=== PATIENT | male | born 1935 | race Caucasian/White ===

== ENCOUNTER 2020-08-29 08:52 | Emergency (ER) | payer MEDICARE, SELFPAY ==
[2020-08-29 09:18] VITALS: BP 158/72; PULSE 79; RESP 18; TEMP 36.6; O2SAT 99; BMI 24.5
--- NOTE | 2020-08-29 09:27 | DI.RAD.S_ITS ---
PROCEDURE: XR KNEE LT 3V INDICATIONS: fall TECHNIQUE: 3 views of the knee were acquired. COMPARISON: None. FINDINGS: Bones: Nondisplaced patellar fracture. No suspicious bony lesions. Soft tissues: Moderate joint effusion. No suspicious soft tissue calcifications. Anterior soft tissue swelling. IMPRESSION: Nondisplaced patellar fracture with associated knee joint effusion. Dictated by: Semaj Guerin M.D. on 08/29/2020 at 8:50 Approved by: Semaj Guerin M.D. on 08/29/2020 at 8:51
--- NOTE | 2020-08-29 10:05 | ED_ITS ---
HPI - Extremity Injury (Lower) General Chief Complaint: Extremity Injury, Lower Stated Complaint: fell and hurt knee Time Seen by Provider: 08/29/20 09:05 Source: patient Mode of arrival: Family Vehicle Limitations: no limitations History of Present Illness HPI Narrative: 85-year-old gentleman recently moved to [facility] has a history of cardiac disease, renal insufficiency and hyperlipidemia. While moving boxes yesterday he hit an edge of a box and fell forward landing on his left knee less elbow. He did not hit his head he did not lose consciousness. Was able to get up and went about the rest of his day that this morning notes that his knees increasingly painful and swollen. He is able to walk on it. He describes no preceding dizziness or chest pain. He has been otherwise healthy with no recent fevers, cough, chills, abdominal pain, dyspnea, orthopnea, change to bowel or bladder habits or any urinary symptoms. Related Data Previous Rx's Medication Instructions Recorded hydrocodone 5 mg-acetaminophen 325 1 tab PO Q6H PRN #10 tab 08/29/20 mg tablet Review of Systems Review of Systems Narrative: Remainder of complete review of systems is otherwise unremarkable except for that included in the HPI. Patient History Medical History Hyperlipidemia Renal insufficiency Social History Smoking Status: Never smoker Smoking Status: Never smoker alcohol intake frequency: 0-2 drinks per day Exam Narrative Exam Narrative: General: Alert appropriate in no acute distress Respiratory: Able to speak in full sentences, no obvious respiratory distress Skin: Scattered shallow bruises from thin skin and aspirin use, skin tear to the left elbow and minor scratch just above the elbow. Neurologic: Grossly intact no obvious asymmetries or abnormalities Psych: appropriate insight and affect, cooperative Extremities: Left knee without significant contusion or hematoma with tenderness directly over 50 the patella and full orthopedic exam limited by moderate effusion but no obvious ligamentous instability. Neurovascularly intact distally Initial Vital Signs Initial Vital Signs: Vital Signs Temperature 97.9 F 08/29/20 09:18 Pulse Rate 79 08/29/20 09:18 Respiratory Rate 18 08/29/20 09:18 Blood Pressure 158/72 H 08/29/20 09:18 Pulse Oximetry 99 08/29/20 09:18 Procedures Orthopedic Splinting/Casting Left patellar fracture: Time of procedure: 11:47 Lower Extremity Injury Location: knee Lower Extremity Immobilizer: knee immobilizer Other Orthopedic Equipment: crutches Post splinting neuro exam: intact Post splinting vascular exam: intact Placed by: Nursing Course Orders Ordered: ED Orders 08/29/20 09:27 XR knee LT 3V Stat Vital Signs Vital signs: Vital Signs - 8 hr 08/29/20 09:18 08/29/20 11:35 Temperature 97.9 F Pulse Rate 79 70 Respiratory Rate 18 17 Blood Pressure 158/72 H 144/69 H Pulse Oximetry 99 97 MDM - Extremity Injury (Lower) Imaging Data X-ray knee: Radiologist's Impression: FINDINGS: Bones: Nondisplaced patellar fracture. No suspicious bony lesions. Soft tissues: Moderate joint effusion. No suspicious soft tissue calcifications. Anterior soft tissue swelling. IMPRESSION: Nondisplaced patellar fracture with associated knee joint effusion. Dictated by: Semaj Geurin M.D. on 08/29/2020 at 8:50 MDM Narrative Medical decision making narrative: 85-year-old gentleman with a nondisplaced patellar fracture and mild skin tear over the elbow both on the left side. Skin tear is cleaned and Steri-Strips are placed. He is placed in a knee immobilizer and crutches are given he does have a walker available to him at home. He states the pain is manageable and declines any pain medication. Tries to avoid nonsteroidals because of his mild renal insufficiency. Last him to follow-up with orthopedic surgery if he feels that he is not improving and he is safe for home discharge Discharge Plan Departure Patient Disposition: Home Clinical Impression: Closed fracture of left patella Qualifiers: Encounter type: initial encounter Fracture morphology: unspecified fracture morphology Fracture alignment: nondisplaced Qualified Code(s): S82.002A - Unspecified fracture of left patella, initial encounter for closed fracture Skin tear of left elbow without complication Qualifiers: Encounter type: initial encounter Qualified Code(s): S51.012A - Laceration without foreign body of left elbow, initial encounter Instructions: DI for Patella Fracture Activity Restrictions/Additional Instructions: Thank you for coming in today Unfortunately, you do have a nondisplaced patellar (knee calf) fracture on the left side. There is a small bit of effusion (fluid) in the knee as well. This is going to be tender for a number of weeks and fractures typically take 6 weeks to completely heal. The next 24-48 hours are going to be the most painful. Elevation, ice, Tylenol and [place] if the pain is severe enough as well as the knee immobilizer will help with pain. You can walk on the leg without causing more injury but it will be painful. Please use the crutches given in the emergency room or the walker that you have available at home to help with stability so that you do not fall again the next few days I would recommend schedule an appointment with our orthopedic surgeon, Dr. Warner at [facility] [phone] sometime next week for evaluation to make sure that you truly are healing appropriately and there are no other recommendations that he has. I hope you heal quickly Prescriptions: New hydrocodone-acetaminophen 5-325 mg tablet 1 tab PO Q6H PRN (Reason: pain) Qty: 10 RF: 0 Referrals: Radha Warner MD [Physician] -
[2020-08-29 11:35] VITALS: BP 144/69; PULSE 70; RESP 17; O2SAT 97
== END 2020-08-29 11:37 | disposition home or self-care (01) ==
PROVIDERS: Emergency Provider Emergency Medicine
DX: S82.002A Unspecified fracture of left patella, initial encounter for closed fracture (principal); S51.012A Laceration without foreign body of left elbow, initial encounter; W19.XXXA Unspecified fall, initial encounter
CPT/HCPCS: 73562; 99283

== ENCOUNTER → 2020-12-18 11:32 | Outpatient (CLI) | payer MEDICARE, SELFPAY ==
--- NOTE | 2020-12-18 11:34 | DI.CT.S_ITS ---
PROCEDURE: CT ABDOMEN PELVIS WO CON INDICATIONS: Abdominal pain history of kidney stones TECHNIQUE: Axial sections were acquired from the lung bases to the pubic symphysis. Coronal and sagittal reformats were performed. For radiation dose reduction, the following was used: automated exposure control, adjustment of mA and/or kV according to patient size. COMPARISON: None. FINDINGS: Image quality: Excellent. Lung bases: Right basilar atelectasis. Heart: No significant findings. URINARY: Right Kidney: 5.9 mm nonobstructing calculus in the upper pole. No hydronephrosis. Right Ureter: No hydroureter. Left Kidney: Punctate (/than 3 mm) non-obstructing calculus in the lower pole. Left Ureter: No hydroureter. Bladder: 6.5 mm calculus in the right aspect of the urinary bladder. ABDOMEN: Liver: Unremarkable. Gallbladder: No gallbladder wall thickening or pericholecystic fluid. Biliary ducts: Unremarkable. Pancreas: Unremarkable. Spleen: Unremarkable. Adrenal Glands: Unremarkable. Stomach and Bowel: No evidence of intestinal obstruction. Extensive sigmoid diverticulosis. A moderate stool burden in the ascending/transverse colon. Normal appendix. Peritoneum: No abnormal intraperitoneal fluid. No free air. Ventral Wall: A fat containing periumbilical hernia is seen with defect measuring 1.4 cm in hernia sac measuring 4.9 cm in transverse dimension. Abdominal Nodes: No enlarged retroperitoneal or mesenteric lymph nodes. Vessels: Aorta and inferior vena cava are normal in size. PELVIS: Pelvic Organs: Enlargement of the prostate, measuring 5.8 cm in transverse dimension. Pelvic Nodes: Unremarkable. Miscellaneous: Small fat containing, left inguinal hernia with fascial defect measuring 1 cm. Bones: No acute abnormality. A left hip arthroplasty is noted. Moderate disc height loss at L5-S1 with vacuum phenomena. IMPRESSION: 1. Bilateral nephrolithiasis as detailed above. 2. 6.5 mm calculus in the right aspect of the urinary bladder. 3. Prostatomegaly. 4. Extensive sigmoid diverticulosis. 5. Fat containing left inguinal and ventral hernias as detailed above. Dictated by: Cipriano Stuart M.D. on 12/18/2020 at 13:21 Approved by: Cipriano Stuart M.D. on 12/18/2020 at 13:32
== END ==
PROVIDERS: PCP Internal Medicine; Referring Provider Urology; Visit Provider Urology
DX: R10.30 Lower abdominal pain, unspecified (principal); N20.0 Calculus of kidney; N21.0 Calculus in bladder; N40.0 Benign prostatic hyperplasia without lower urinary tract symptoms; K57.30 Diverticulosis of large intestine without perforation or abscess without bleeding; K40.90 Unilateral inguinal hernia, without obstruction or gangrene, not specified as recurrent; K43.9 Ventral hernia without obstruction or gangrene; Z87.442 Personal history of urinary calculi
CPT/HCPCS: 74176

== ENCOUNTER → 2020-12-22 11:56 | Outpatient (CLI) | payer MEDICARE, SELFPAY | PROVIDERS: PCP Internal Medicine; Referring Provider Urology; Visit Provider Urology | DX: N39.0 Urinary tract infection, site not specified (principal) | CPT/HCPCS: 87086 ==

== ENCOUNTER → 2020-12-22 12:34 | Outpatient (CLI) | payer MEDICARE, SELFPAY ==
--- NOTE | 2020-12-22 12:36 | DI.RAD.S_ITS ---
PROCEDURE: XR KUB INDICATIONS: Renal calculi TECHNIQUE: One view of the abdomen acquired. COMPARISON: Reference is made to the CT abdomen dated December 18, 2020. FINDINGS: Surgical changes and devices: None. Bowel: Bowel gas pattern is normal. Soft tissues: No suspicious abdominal calcifications. Visualized solid organ contours appear normal in size. Bones: No suspicious bony lesions. A partially imaged left hip arthroplasty is seen. At least moderate degenerative changes of the right hip with sclerosis of the femoral head. IMPRESSION: No significant abnormality. Dictated by: Cipriano Stuart M.D. on 12/22/2020 at 13:25 Approved by: Cipriano Stuart M.D. on 12/22/2020 at 13:31
== END ==
PROVIDERS: PCP Internal Medicine; Referring Provider Urology; Visit Provider Urology
DX: N20.0 Calculus of kidney (principal); N21.0 Calculus in bladder; N39.0 Urinary tract infection, site not specified; R10.30 Lower abdominal pain, unspecified; K42.9 Umbilical hernia without obstruction or gangrene; Z85.51 Personal history of malignant neoplasm of bladder; Z96.642 Presence of left artificial hip joint
CPT/HCPCS: 74018; 81002; 87086; 99215

== ENCOUNTER → 2020-12-29 08:42 | Outpatient (CLI) | payer MEDICARE, SELFPAY ==
--- NOTE | 2020-12-29 08:47 | DI.CT.S_ITS ---
PROCEDURE: CT PEL WO CON INDICATIONS: KIDNEY STONES TECHNIQUE: Images acquired in prone position. 5 mm thick sections acquired from above the iliac crests to the below the ischial tuberosities. 5 mm coronal and sagittal reformats were then performed. For radiation dose reduction, the following was used: automated exposure control, adjustment of mA and/or kV according to patient size. COMPARISON: None. FINDINGS: Image quality: Excellent. Peritoneum and bowel: Diverticulosis. No diverticulitis. No dilated loops of bowel. No free fluid or air. Genitourinary: Obstructing calculus in the distal right ureter at the pelvic brim measuring 0.4 cm, (2/20), new compared to CT 12/18/2020. Upstream right hydroureter is seen. Bladder is partially distended. There is a stone now located in the anterior bladder measuring 0.7 cm, (2), previously located in the right dependent bladder. This stone is free-floating. Suspect additional punctate bladder stone, (2/). No distal hydroureter. Nodes and vessels: No iliac, pelvic, or inguinal adenopathy by size criteria. Iliac vessels demonstrate normal size. Bones: No suspicious bony lesions. Left hip total arthroplasty, unchanged. Moderate right hip DJD. Miscellaneous: Suspect fat containing left inguinal hernia. IMPRESSION: 1. Obstructing calculus in the distal right ureter at the pelvic brim measuring 0.4 cm. Upstream right hydroureter. 2. Free floating stone in the bladder measuring 0.7 cm. Suspect additional punctate bladder stone. 3. Prostatomegaly. Dictated by: Matt White M.D. on 12/29/2020 at 9:36 Approved by: Matt White M.D. on 12/29/2020 at 9:46
== END ==
PROVIDERS: PCP Internal Medicine; Referring Provider Urology; Visit Provider Urology
DX: N20.0 Calculus of kidney (principal); N20.1 Calculus of ureter; N21.0 Calculus in bladder; N40.0 Benign prostatic hyperplasia without lower urinary tract symptoms; K57.90 Diverticulosis of intestine, part unspecified, without perforation or abscess without bleeding
CPT/HCPCS: 72192

== ENCOUNTER 2021-01-02 15:36 | Emergency (ER) | payer MEDICARE, SELFPAY ==
[2021-01-02 15:56] VITALS: BP 138/65; PULSE 77; RESP 18; TEMP 36.7; O2SAT 96; BMI 24.5
--- NOTE | 2021-01-02 17:05 | ED_ITS ---
HPI - Male Genitourinary <Wolf Cho PA-C - Last Filed: 01/02/21 19:33> General Chief complaint: Urogenital-Male Stated complaint: LEAKING CATHETER Time Seen by Provider: 01/02/21 16:23 Source: patient Mode of arrival: Ambulatory Limitations: no limitations History of Present Illness HPI Narrative: Patient is an 85-year-old male presenting to the emergency department today for evaluation of the leaking catheter. Patient states that he underwent a procedure on 12/31/2020 receiving a stent for kidney stones. The patient states that he began to experience leaking around the catheter late this morning. Patient denies seeing any blood or clots leaking from around the catheter. Additionally, he states that he is not experiencing any abdominal pain her pain around his bladder. Patient denies fever, chills, chest pain, shortness of breath, nausea, vomiting, abdominal pain, diarrhea. No other concerns voiced at this time. Related Data Home Medications Medication Instructions Recorded Confirmed aspirin 81 mg tablet,delayed 81 mg PO DAILY 11/05/20 12/22/20 release atorvastatin 40 mg tablet 40 mg PO DAILY 11/05/20 12/22/20 cholecalciferol (vitamin D3) 25 25 mcg PO DAILY 11/05/20 12/22/20 mcg (1,000 unit) capsule Allergies Allergy/AdvReac Type Severity Reaction Status Date / Time Penicillins Allergy swelling Verified 01/02/21 15:56 Review of Systems <Wolf Cho PA-C - Last Filed: 01/02/21 19:33> Constitutional Constitutional: Denies chills, Denies fever(s), Denies lethargy and Denies weakness Cardiovascular Cardiovascular: Denies chest pain, Denies irregular heart rhythm, Denies lightheadedness, Denies palpitations, Denies dyspnea, Denies dyspnea on exertion and Denies orthopnea Respiratory Respiratory: Denies cough, Denies dyspnea, Denies dyspnea on exertion and Denies wheezing Gastrointestinal Gastrointestinal: Denies abdominal pain, Denies change in bowel habits, Denies diarrhea, Denies nausea and Denies vomiting Genitourinary Genitourinary: Denies hematuria and Reports other (Leaking around catheter) Neurologic Neurologic: Denies weakness Endocrine Endocrine: Denies palpitations Allergic/Immunologic Allergic/Immunologic: Denies wheezing Patient History <Wolf Cho PA-C - Last Filed: 01/02/21 19:33> Medical History Aortic stenosis Bladder calculus Calculus of kidney Carotid artery plaque Cataract Dupuytren contracture History of kidney stones Hx of bladder cancer Hyperlipidemia Hyperparathyroidism Low vitamin D level Lower abdominal pain Pacemaker Recurrent skin cancer Renal insufficiency 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 Well-developed patient, in no acutedistress. HEAD: Atraumatic. Normocephalic. EYES: Pupils equal round and reactive. Extraocular motions intact. No scleral icterus. No injection or drainage. ENT: Nose without bleeding, purulent drainage. Throat without erythema, tonsillar hypertrophy or exudate. Airway patent. NECK: Trachea midline. Non tender CARDIOVASCULAR: Regular rate and rhythm without murmurs, gallops, or rubs. RESPIRATORY: Clear to auscultation. Breath sounds equal bilaterally. No wheezes, rales, or rhonchi. GASTROINTESTINAL: Abdomen soft, non-tender, nondistended. GENITOURINARY: catheter in place. No active drainage from catheter appreciated. No appreciable debris, clots or blood in urine. EXTREMITIES: No edema or joint tenderness. BACK: Nontender without deformity or crepitance. No flank tenderness. NEURO: AOx3. SKIN: No rash or erythema of visible areas Initial Vital Signs Initial Vital Signs: Vital Signs Temperature 98.1 F 01/02/21 15:56 Pulse Rate 77 01/02/21 15:56 Respiratory Rate 18 11/06/21 15:56 Blood Pressure 138/65 01/02/21 15:56 Pulse Oximetry 96 01/02/21 15:56 <DO Konrad Joe Last Filed: 01/03/21 10:18> Initial Vital Signs Initial Vital Signs: Vital Signs Temperature 98.1 F 01/02/21 15:56 Pulse Rate 77 01/02/21 15:56 Respiratory Rate 18 01/02/21 15:56 Blood Pressure 138/65 01/02/21 15:56 Pulse Oximetry 96 01/02/21 15:56 Course <Wolf Cho PA-C - Last Filed: 01/02/21 19:33> Course Course Narrative: Patient is an 85-year-old male presenting to the emergency department today for evaluation of the leaking catheter. Orders Ordered: Discontinued Medications Oxybutynin (Oxybutynin 5 Mg Tablet) 5 mg PO DAILY KOJO Oxybutynin (Oxybutynin 5 Mg Tablet) 5 mg PO NOW ONE Stop: 01/02/21 18:16 Last Admin: 01/02/21 18:22 Dose: 5 mg Documented by: NENA Vital Signs Vital signs: Vital Signs - 8 hr 01/02/21 15:56 01/02/21 17:33 Temperature 98.1 F Pulse Rate 77 72 Respiratory Rate 18 18 Blood Pressure 138/65 133/63 Pulse Oximetry 96 97 <Jaimee Moore DO - Last Filed: 01/03/21 10:18> Orders Ordered: Discontinued Medications Oxybutynin (Oxybutynin 5 Mg Tablet) 5 mg PO DAILY KOJO Oxybutynin (Oxybutynin 5 Mg Tablet) 5 mg PO NOW ONE Stop: 01/02/21 18:16 Last Admin: 01/02/21 18:22 Dose: 5 mg Documented by: RLHOLLIEI Vital Signs Vital signs: Vital Signs - 8 hr 01/02/21 15:56 01/02/21 17:33 Temperature 98.1 F Pulse Rate 77 72 Respiratory Rate 18 18 Blood Pressure 138/65 133/63 Pulse Oximetry 96 97 MDM - Male Genitourinary <TOPHER Espinoza Last Filed: 01/02/21 19:33> MDM Narrative Medical decision making narrative: Patient is an 85-year-old male presenting to the emergency department today for evaluation of the leaking catheter. To consider leaking catheter versus urinary tract infection. 100 mL of normal saline flushed into the catheter with 100 mL fluid returned. Patient was bladder scanned with no significant urinary retention appreciated. No further appreciable we could from the catheter noted. Further leaking occurred, and the catheter was replaced with a larger catheter. Additionally, p.o. oxybutynin was administered in the emergency department. No further leakage from the catheter appreciated. Discussed with the patient strict return precautions prior to discharge. Discharge Plan Departure Patient Disposition: Home Clinical Impression: Leakage from urinary catheter Qualifiers: Encounter type: initial encounter Qualified Code(s): T83.038A - Leakage of other urinary catheter, initial encounter Instructions: How to Care for Your Catheter -- Male Activity Restrictions/Additional Instructions: *You have been diagnosed with leakage from urinary catheter *What to do: *Please continue to take your regular medications as directed. [ ] New medication prescriptions sent to your pharmacy: [ ] [ ] New medication written as a paper prescription [X] No new medications given *Please follow up with your primary care provider in 2-3 days, call for an appointment. Let them know you were seen in the Emergency Department and that we ask that you be seen in follow up. We will electronically transmit a record of today's note if your PCP is in our system *Please continue taking your oxybutynin as directed. *If you do not have a primary care provider please contact the [facility] Resource line at [phone]. They will ask some questions about your medical history and help get you set up with a doctor in the community. *Return to Emergency Department if you should have any new, worsening or concerning symptoms, such as fever greater than 101 F, shaking chills, pain, p ersistent vomiting, leakage from catheter, or other bothersome symptoms. Prescriptions: No Action aspirin 81 mg tablet,delayed release (DR/EC) 81 mg PO DAILY RF: 0 atorvastatin 40 mg tablet 40 mg PO DAILY RF: 0 cholecalciferol (vitamin D3) 25 mcg (1,000 unit) capsule 25 mcg PO DAILY RF: 0 Referrals: Renny Cerda MD [Primary Care Provider] - <Jaimee Moore DO - Last Filed: 01/03/21 10:18> Cosign ED Attending Cosignature Attestation: I was immediately available in the department for consultation. Documentation has been reviewed. I agree with assessment and plan.
--- NOTE | 2021-01-02 17:06 | PC.NURSE ---
Flushed catheter with 100ml of NS, got 100ml urine return. Changed leg bag and gave patient new night time back. Urine was flowing into new bag after flushing.
[2021-01-02 17:33] VITALS: BP 133/63; PULSE 72; RESP 18; O2SAT 97
[2021-01-02] MEDS: OXYBUTYNIN 5 MG TABLET PO (18:22)
== END 2021-01-02 19:14 | disposition home or self-care (01) ==
PROVIDERS: Emergency Provider Physician Assistant; PCP Internal Medicine
DX: T83.038A Leakage of other urinary catheter, initial encounter (principal)
CPT/HCPCS: 99283

== ENCOUNTER → 2021-11-23 12:13 | Outpatient (CLI) | payer MEDICARE, SELFPAY ==
--- NOTE | 2021-11-23 | DI.CT.S_ITS ---
PROCEDURE: CT KIDNEY URETER BLADDER (KUB) INDICATIONS: RIGHT FLANK PAIN/HISTORY OF KIDNEY STONES TECHNIQUE: Axial sections were acquired from the lung bases to the pubic symphysis. Coronal and sagittal reformats were performed. For radiation dose reduction, the following was used: automated exposure control, adjustment of mA and/or kV according to patient size. COMPARISON: None. FINDINGS: Image quality: Excellent. Lung bases: Right basilar atelectasis. The lung bases are otherwise clear. Heart: Heart size is normal. URINARY: Right Kidney: No stones or hydronephrosis. Right Ureter: No hydroureter. Left Kidney: No obstructing stones or hydronephrosis. The left kidney has a nonobstructing stone in the inferior pole. Left Ureter: No hydroureter. Bladder: 2 stones measuring 4 mm lie within the posterior bladder dependently. ABDOMEN: Liver: Unremarkable. Gallbladder: Unremarkable. Biliary ducts: Unremarkable. Pancreas: Unremarkable. Spleen: Unremarkable. Adrenal Glands: Unremarkable. Stomach and Bowel: Stomach, small bowel loops, and colon are unremarkable. There is severe diverticulosis of the left colon with no evidence of diverticulitis. Peritoneum: No abnormal intraperitoneal fluid. No free air. Ventral Wall: Fat containing ventral hernia. Abdominal Nodes: No enlarged retroperitoneal or mesenteric lymph nodes. Vessels: The aorta has atherosclerosis with no aneurysmal dilatation. The IVC is patent. PELVIS: Pelvic Organs: Unremarkable. Pelvic Nodes: Unremarkable. Miscellaneous: There is a fat containing left inguinal hernia. Bones: Degenerative disc disease at L5-S1. Status post total left hip replacement. IMPRESSION: 1. No obstructing nephroureteral calculi. 2. Punctate nonobstructing stone in the left inferior pole. 3. No acute abdominal or pelvic abnormality. 4. Fat containing left inguinal hernia and fat containing ventral hernia. 5. Diverticulosis of the sigmoid colon with no evidence of acute diverticulitis. . Dictated by: Arsen Peterson M.D. on 11/23/2021 at 16:33 Approved by: Arsen Peterson M.D. on 11/23/2021 at 16:38
== END ==
PROVIDERS: PCP Internal Medicine; Referring Provider Physician Assistant Surgical; Visit Provider Physician Assistant Surgical
DX: N20.0 Calculus of kidney (principal); K57.30 Diverticulosis of large intestine without perforation or abscess without bleeding; R10.9 Unspecified abdominal pain; K40.90 Unilateral inguinal hernia, without obstruction or gangrene, not specified as recurrent; K43.9 Ventral hernia without obstruction or gangrene; Z87.442 Personal history of urinary calculi
CPT/HCPCS: 74176

== ENCOUNTER → 2021-12-14 08:53 | Outpatient (CLI) | payer MEDICARE, SELFPAY ==
--- NOTE | 2021-12-14 | DI.US.S_ITS ---
PROCEDURE: US RENAL COMPLETE INDICATIONS: Calculus of kidney TECHNIQUE: Real-time scanning was performed of the kidneys and bladder, with image documentation. COMPARISON: [facility], CT, CT KIDNEY URETER BLADDER (KUB), 11/23/2021, 12:22. FINDINGS: Kidneys: Kidneys are normal in size. Right kidney measures 10.9 cm long; left kidney measures 10.3 cm long. Right renal cortical thickness is 1.2 cm; left renal cortical thickness is 1 4 cm. Renal cortical echotexture is normal. Shadowing calculus noted in the lower pole measuring 5 mm No suspicious solid mass lesions. Bladder: Pre-void bladder volume is 164 mL. Post-void residual is 97 mL. Pre-void images demonstrate no intraluminal masses or stones. On pre-void images, neither ureteral jets are noted with color Doppler interrogation. (Of note, ureteral jets may not be detectable in up to 25% of cases due to insufficient differences in specific gravity between ureteral and bladder urine). Bladder wall is thickened and irregular, there is a possible calculus in the lumen the bladder. Hypertrophic prostate measures 6.0 x 5.8 x 5.4 Miscellaneous: No free pelvic fluid. IMPRESSION: 1. Bladder outlet obstruction. The bladder wall is thickened, positive postvoid residual, and hypertrophic prostate elevates the bladder floor. Possible calculus in the bladder could be further evaluated with renal protocol CT. 2. Nonobstructive left renal calculus, 5 mm. No hydronephrosis bilaterally. Approved by: Wally Camacho M.D. on 12/14/2021 at 11:28
== END ==
PROVIDERS: PCP Internal Medicine; Referring Provider Physician Assistant Surgical; Visit Provider Physician Assistant Surgical
DX: N20.0 Calculus of kidney (principal); N32.0 Bladder-neck obstruction
CPT/HCPCS: 76770

== ENCOUNTER → 2022-01-07 09:39 | Outpatient (CLI) | payer MEDICARE, SELFPAY ==
[2022-01-07 10:43] LABS: COVID19 -Nasal RAPID Negative (Negative)
== END ==
PROVIDERS: PCP Internal Medicine; Visit Provider Surgery
DX: Z20.822 Contact with and (suspected) exposure to COVID-19 (principal); Z01.812 Encounter for preprocedural laboratory examination
CPT/HCPCS: 87635; C9803

== ENCOUNTER 2022-01-10 09:30 | Day surgery (SDC) | payer MEDICARE, SELFPAY ==
--- NOTE | 2022-01-10 | PATH_ITS ---
[facility] Accession Number: [id number] . 01 Material submitted: . PART A: colon - TRANSVERSE COLON POLYP - LARGE SMALL PART B: colon - LARGE TRANSVERSE COLON POLYP . 01 Diagnosis: A. Transverse Colon Polyp, Large Small, Polypectomy: Tubular adenoma. . B. Large Transverse Colon Polyp, Polypectomy: Tubular adenoma. MRV 01/13/2022 1516 Local . 01 Electronically signed: . Tracey Taylro MD, Pathologist NPI- [id number] . 01 Gross description: . Part A: TRANSVERSE COLON POLYP - LARGE SMALL: Received in formalin are 2 fragment(s) of pteer, soft tissue measuring 0.4 x 0.4 x 0.2 cm to 0.4 x 0.1 x 0.1 cm submitted entirely in 1 cassette(s) Part B: LARGE TRANSVERSE COLON POLYP: Received in formalin are multiple fragment(s) of peter, soft tissue measuring 2.2 x 1.0 x 0.1 cm in aggregate submitted entirely in 1 cassette(s) /CPE 01/12/2022 0708 Local . 01 Pathologist provided ICD-10: D12.6 . 01 CPT . 992707, [id number] Specimen Comment: A courtesy copy of this report has been sent to [phone] Performed at: 01 [facility] [address] [place] [address] [address], [place], [place] [id number] MD Ji Billings MD Phone: [phone]
[2022-01-10 09:54] VITALS: BMI 24.5
[2022-01-10 10:01] VITALS: BP 139/69; PULSE 78; RESP 16; TEMP 36.2; O2SAT 100
[2022-01-10] MEDS: LACTATED RINGERS 1,000 ML 84 ML IV (10:09)
--- NOTE | 2022-01-10 10:21 | PM.HP.1 ---
History of Present Illness History of Present Illness Date Patient Seen: 01/10/22 Time Patient Seen: 10:21 Chief complaint: DX COLONOSCOPY Narrative: I reviewed my recent office note. No significant changes. 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 chronic kidney disease Surgical History H/O circumcision H/O hernia repair History of hip replacement Family & Social History Social History: household members spouse lives independently Yes Tobacco & Substance use: Smoking Status Never smoker alcohol intake current alcohol intake frequency 0-2 drinks per day Substance Use Type does not use Meds Home Medications and Allergies Home Medications Medication Instructions Recorded Confirmed Type atorvastatin 40 mg tablet 40 mg PO DAILY 11/05/20 01/10/22 History cholecalciferol (vitamin D3) 25 25 mcg PO DAILY 11/05/20 01/10/22 History mcg (1,000 unit) capsule acetaminophen 650 mg tablet 650 mg PO Q6H PRN Pain (Scale 01/10/22 01/10/22 History Score 4-6) Allergies Allergy/AdvReac Type Severity Reaction Status Date / Time Penicillins Allergy swelling Verified 01/10/22 09:52 Review of Systems Review of Systems ROS: Yes All systems reviewed with the patient and are negative except as otherwise documented Exam Vital Signs (past 8 hours): - 01/10/22 10:01 Temperature 97.2 F L Pulse Rate 78 Respiratory Rate 16 Blood Pressure 139/69 Pulse Oximetry 100 Oxygen Delivery Method Room Air Oxygen Delivery Method Room Air Const General: cooperative HENMT Head: normal to inspection Eyes General: appearance normal, both eyes and all related structures Neck Neck: normal visual inspection Chest Chest: normal inspection of the chest Resp Effort & Inspection: normal respiratory effort Cardio Rate: regular rate GI Inspection: normal to inspection Skin General: no rashes or lesions noted Neuro General: patient alert and patient awake Extrem General: normal to inspection and no pedal edema Psych Appearance: grossly normal Assessment & Plan Assessment & Plan narrative: 86-year-old male with a personal history of colon polyps. Colonoscopy is pursued today. Time Spent With Patient Critical Care time: I spent a total of [] minutes of critical care time on this patient's care today; this time is exclusive of procedural time.
--- NOTE | 2022-01-10 10:22 | PM.PREOP ---
Pre-operative Note COVID-19 COVID-19 status: Negative Result date/Date tested (Pos, Neg/Pending): 01/07/22 Criteria for continued procedure: Possibility delay results in more complex future surgery or treatment Interval Note History & Physical reviewed/Exam performed by Physician: Yes Changes to H&P: No ASA Class (for procedural sedation): III
--- NOTE | 2022-01-10 12:05 | PM.OP.COLON ---
Operative Date/Time/Diagnoses Date of procedure: 01/10/22 Time of procedure: 12:05 Pre-op diagnosis: Colon polyps Post-op diagnosis: same Procedure & Clinicians Study performed: Colonoscopy with hot snare polypectomy cold forceps polypectomy Sharee ink injection Indications: Colon polyps Surgeon: Lebron Larson Procedure Notes SCOAP/Timeout: Done Procedure in detail: After the risks and benefits were explained, written and verbal informed consent was obtained. The patient was brought into the procedure room and placed into the left lateral decubitus position. Please see nurse corridor redevelopment manager notes for sedation details. Digital rectal examination was accomplished. The scope was introduced into the patient and advanced under direct visualization to the cecum as identified by the appendiceal orifice and ileocecal valve. The scope was slowly withdrawn to carefully examine the mucosa for any defects or lesions. Comprehensive imaging was accomplished throughout the rectum including the dentate line. The colon was decompressed, the scope was then removed from the patient who tolerated the procedure well. Twenty-two modifier is requested secondary to a very difficult polypectomy Adult colonoscope Bowel prep adequate Scope withdrawal time: 22 minutes Sedation minutes: 55 Complications: none Impression: There was extensive diverticulosis in the sigmoid colon. In the transverse colon there were 2 small polyps removed. One was diminutive and cold forceps were deployed. The other was slightly larger perhaps 7 mm and hot snare was utilized. There was an additional sessile large polyp perhaps 2 cm in greatest dimension. This only became apparent after initial snare attempt removed only a part of this polyp as there was a considerable hidden component on the backside of the fold stretching down into the trough between the next fold. As a consequence we spent considerable time at this location and were required to remove via piecemeal format. There was a small amount of residual adenomatous appearing mucosa that could not be removed with the snare as we did not have a stiff snare to press down sufficiently on this residual area which I ablated using the tip of the snare. A small tattoo was placed distal to the location which was in the proximal transverse colon within a couple of folds or so of the hepatic flexure. The location was difficult to maintain position on. Procedure time was as a consequence prolonged. Endoscopic diagnosis 1. Colon polyps 2. Diverticulosis 3. Prolonged procedure Post-procedure Plan for aftercare: 1. Await histopathology 2. Repeat colonoscopy 6 months. Disposition: PACU
[2022-01-10 12:07] VITALS: BP 115/53; PULSE 62; RESP 15; TEMP 36.6; O2SAT 98
[2022-01-10 12:13] VITALS: BP 128/55; PULSE 64; RESP 15; O2SAT 97
[2022-01-10 12:19] VITALS: BP 128/62; PULSE 67; RESP 14; TEMP 36.3; O2SAT 98
[2022-01-10 12:22] VITALS: BP 132/99; PULSE 65; RESP 12; TEMP 36.6; O2SAT 98
== END 2022-01-10 12:40 | disposition home or self-care (01) ==
PROVIDERS: PCP Internal Medicine; Referring Provider Internal Medicine Gastroenterology; Visit Provider Internal Medicine Gastroenterology
PROC: 0DJD8ZZ Inspection of Lower Intestinal Tract, Via Natural or Artificial Opening Endoscopic (ICD-10-PCS; CPT 45378; principal; 2022-01-10 10:30)
DX: Z12.11 Encounter for screening for malignant neoplasm of colon (principal); Z86.010 Personal history of colon polyps; K57.30 Diverticulosis of large intestine without perforation or abscess without bleeding; D12.3 Benign neoplasm of transverse colon
CPT/HCPCS: 45385; 45380; 45381; C9803; J2704

== ENCOUNTER → 2022-02-01 09:12 | Outpatient (CLI) | payer MEDICARE, SELFPAY ==
[2022-02-01 12:46] LABS: COVID19 -Nasal RAPID Negative (Negative)
== END ==
PROVIDERS: PCP Internal Medicine; Visit Provider Surgery
DX: Z20.822 Contact with and (suspected) exposure to COVID-19 (principal); Z01.812 Encounter for preprocedural laboratory examination
CPT/HCPCS: 87635; C9803

== ENCOUNTER 2022-02-02 07:50 | Day surgery (SDC) | payer MEDICARE, SELFPAY ==
[2022-02-01 10:43] VITALS: BMI 25.0
[2022-02-02] VITALS (9 sets, daily range): BP systolic 148–158; BP diastolic 65–97; PULSE 60–70; RESP 15–17; TEMP 35.9–36.3; O2SAT 97–99; BMI 24.7
--- NOTE | 2022-02-02 08:17 | PM.PREOP ---
Pre-operative Note Interval Note History & Physical reviewed/Exam performed by Physician: Yes Changes to H&P: No
[2022-02-02] MEDS: LACTATED RINGERS 1,000 ML 100 ML IV (08:26)
--- NOTE | 2022-02-02 08:30 | SUR.OPER ---
Supine on padded OR bed, head on pillow, arms padded and tucked at sides, legs uncrossed, safety belt at thigh, tape over blanket over lower legs .
[2022-02-02] MEDS: CLINDAMYCIN 900 MG/50 ML PIGGYBACK 50 MG IV (08:50)
[2022-02-02] MEDS: BUPIVACAINE 0.25% (PF) VIAL 30 ML INJ (09:11)
--- NOTE | 2022-02-02 11:01 | P.OP_ITS ---
Operative Date/Time/Diagnoses Date of procedure: 02/02/22 Time of procedure: 11:01 Pre-op diagnosis: Recurrent Right inguinal hernia Umbilical hernia Post-op diagnosis: same Procedure & Clinicians Procedure: Laparoscopic transabdominal preperitoneal repair of recurrent right inguinal hernia. Open umbilical hernia repair Same procedure as scheduled: Yes Indications: 86-year-old man previous anterior right inguinal hernia repair with a recurrence and a umbilical hernia. Surgeon: Nilay Hernandez Click Yes if Unassisted: Yes Anesthesia Type: General Operative Notes Findings: Right inguinal hernia-direct floor defect no indirect hernia Umbilical hernia-2 cm fascial defect No significant hemorrhage however the patient had a propensity to bleed that was more than average Specimen(s): none sent Estimated Blood Loss (mL): 100 Procedure in detail: The patient was brought to the operating room and placed supine on the table. Bilateral sequential compression devices were applied. General anesthesia was induced and they were intubated with an endotracheal tube. A nieves cath was placed in sterile fashion. They received 900g clindaymycin prior to skin incision. They were prepped and draped in sterile fashion. A time out was performed to ensure the correct patient, procedure and necessary equipment within the operating room. The skin was infiltrated with 0.25% bupivicaine. An infra umbilical incision was made. The fascia was sharply incised at the umbilical hernia defect and the abdomen entered traumatically. A 10mm balloon port was placed and pneumoperitoneum was established at 15mm Hg. Inspection of the abdomen demonstrated no evidence of injury upon entry. Two 5 mm ports were then placed under direct visualization in the right and left lower quadrant lateral to the rectus muscle. A right direct hernia was observed. There was no evidence of a left sided defect. On the right side the peritoneum 4 cm superior to the deep inguinal ring between the medial umbilical ligament and the anterior superior iliac spine was incised. The medial preperitoneal dissection was carried out into the space of Retzius bluntly, the bladder was swept inferiorly, the pubis and Abisai's ligament were identified. Next attention was turned towards the lateral aspect of the peritoneal flap. The preperitoneal fat with the testicular vessels was carefully dissected off the inferior peritoneal flap. There was approximately 75 ml of hemorrhage from a small branch off of the inferior epigastric arter which was controlled with hemoclips. The cord content was carefully examined and there was no evidence of cord lipoma or indirect hernia. The attachements to the direct hernia sac were divided and the direct defect was reduced. A large Bard 3D Max mesh was then placed into the abdomen and positioned such that the myopectineal orifice was completely covered with good overlap on all sides. The peritoneal flap was then repositioned back to its original position and a running V lock suture was used to close the peritoneum such that no bowel could herniate into the preperitoneal space. A portion of the peritoneum closure came undone and a few disolvable tacks were used to secure it in appropriate position. The area was examined for hemostasis. The 5mm trocars were removed under direct visualization and pneumoperitoneum was deflated through the umbilical trocar, Using blunt dissection I carefully carefully freed the umbilical hernia sac from beneath the fascia defect in order to accomodate the mesh. The fascia defect was 2 cm in maximal diameter. A Bard Ventralex ST hernia patch 4 cm was inserted beneath the fascia defect and above the peritoneum in a sublay positio n. The mesh was anchored in multiple locations using Ethibond suture to the fascia and the fascial defect was closed over the mesh. The umbilical skin was tacked to the subcutaneous tissues and then the remainder of the subcutaneous tissues were reapproximated using 3 0 Vicry,l skin closed with 4 0 Monocryl followed by the application of Dermabond. Sponge instrument count at the end of the operation was correct. Patient tolerated procedure well was extubated and transferred to postoperative care unit in stable condition. Complications: none Post-operative Condition: stable Disposition: same day surgery
[2022-02-02] MEDS: ONDANSETRON 4 MG/2 ML INJ IV (11:19)
[2022-02-02] MEDS: OXYCODONE/ACETAMINOPHEN 5/325 TABLET 1 TAB PO ×2 (11:19→12:16)
== END 2022-02-02 12:30 | disposition home or self-care (01) ==
PROVIDERS: PCP Internal Medicine; Referring Provider Surgery; Visit Provider Surgery
PROC: 0YQ54ZZ Repair Right Inguinal Region, Percutaneous Endoscopic Approach (ICD-10-PCS; CPT 49651; principal; 2022-02-02 08:45)
PROC: (CPT 49651; 2022-02-02 08:45)
DX: K40.91 Unilateral inguinal hernia, without obstruction or gangrene, recurrent (principal); K42.9 Umbilical hernia without obstruction or gangrene; Z95.0 Presence of cardiac pacemaker
CPT/HCPCS: 49651; 82962; J1100; J2405; J2704; J3010

== ENCOUNTER → 2022-02-23 14:57 | Outpatient (CLI) | payer MEDICARE, SELFPAY ==
--- NOTE | 2022-02-23 15:01 | DI.ECHO.S_ITS ---
[facility]---------+ [facility] +---------+ : : [address] : : : : [id number] : : : : Phone: [phone]+ Echocardiogram Report + + :Name: LANIE CRISTOBAL Study Date: 02/23/2022 Height: 70 in : :[facility] ReadingLocation: Weight: 175 lb : : Gender: Male BSA: 2.0 m2 : :: 1935 Age: 86 yrs BP: 150/87 mmHg: :Reason For Study: MURMUR : :Ordering Physician: TAMIA, : :CHUCK Performed By: Ailyn Leach : :Referring: CHUCK CANTRELL : + + Interpretation Summary The left ventricle is normal in size and wall thickness. The ejection fraction is estimated to be 60-65%. The right ventricle is normal in size and function. There is a pacemaker lead in the right ventricle. There is moderate mitral regurgitation. The aortic valve is moderately calcified. The peak aortic velocity is 2.5 m/sec. The aortic valve mean gradient is 13 mmHg. There is mild to moderately reduced leaflet mobility. The calculated aortic valve area is 2.0 cm2. sev ratio: 0.64 Overall mild to moderate aortic stenosis based on morphology and Doppler evaluation. No critical aortic stenosis. There is mild aortic regurgitation. There is moderate tricuspid regurgitation. The right ventricular systolic pressure is estimated to be at least 36 mmHg based on an estimated right atrial pressure of 3 mm Hg. The ascending aorta is mildly enlarged. Mild atherosclerotic plaque(s) in the aortic arch. There is mild luminal irregularity and echogenicity in the abdominal aorta, suggestive of aortic atherosclerotic disease. Procedure: A two-dimensional transthoracic echocardiogram with color flow and Doppler was performed. The study quality was technically adequate. There is no prior echocardiogram noted for this patient. The patient was in sinus rhythm with heart rates between 60-75 bpm during the exam. Left Ventricle: The left ventricle is normal in size and wall thickness. There is no thrombus. The ejection fraction is estimated to be 60-65%. There are no focal wall motion abnormalities. Diastolic parameters suggest a relaxation abnormality of the left ventricle, consistent with probable normal filling pressures. Right Ventricle: There is a pacemaker lead in the right ventricle. The right ventricle is normal in size and function. Atria: The left atrium is moderately dilated. The right atrium is borderline dilated. There is a catheter/pacemaker lead seen in the right atrium. There is no Doppler evidence for an interatrial shunt. Mitral Valve: There is moderate mitral annular calcification. The mitral valve leaflets are mildly calcified. The mitral valve chordae are thickened and/or calcified. No significant mitral valve stenosis. There is moderate mitral regurgitation. Aortic Valve: The aortic valve is moderately calcified. There is discrete nodular thickening of the non- coronary cusp. There is mild to moderately reduced leaflet mobility. The peak aortic velocity is 2.5 m/sec. The aortic valve mean gradient is 13 mmHg. The calculated aortic valve area is 2.0 cm2. There is mild aortic regurgitation. Tricuspid Valve: Tricuspid leaflets are thickened. There is moderate tricuspid regurgitation. The right ventricular systolic pressure is estimated to be at least 36 mmHg based on an estimated right atrial pressure of 3 mm Hg. Pulmonic Valve: The pulmonic valve is not well visualized. There is trace pulmonic regurgitation. Great Vessels: The aortic root is normal size. There is aortic root sclerosis/calcification. The ascending aorta is mildly enlarged. Mild atherosclerotic plaque(s) in the aortic arch. There is mild luminal irregularity and echogenicity in the abdominal aorta, suggestive of aortic atherosclerotic disease. The IVC is of normal diameter and collapses greater than 50% with a sniff. This suggests a low right atrial pressure of 3 mm Hg. Pericardium/ Pleura There is no pericardial effusion. There is an anterior echo-free space consistent with a fat pad. There is no pleural effusion. MMode/2D Measurements & Calculations LVIDd: 4.6 cm LVOT diam: 2.0 cm LVIDs: 3.1 cm Ao root diam: 3.5 cm FS: 32.1 % asc Aorta Diam: 3.9 cm IVSd: 0.96 cm Ao Arch Diam (Prox Trans): 2.9 cm LVPWd: 0.99 cm LV gann. diameter/BSA (cm/m^2): 2.3 LV sys. diameter/BSA (cm/m^2): 1.6 LA A2 area: 25.1 cm2 RA long axis: 6.1 cm LA A4 area: 23.9 cm2 RA area: 21.4 cm2 LA length (vol): 6.2 cm RA vol: 63.8 ml LA vol: 82.3 ml RA : 32.3 ml/m2 LA vol index: 41.7 ml/m2 IVC diam: 1.5 cm RVD1 (basal): 3.7 cm RVD2 (mid): 3.4 cm TAPSE: 2.1 cm Doppler Measurements & Calculations Ao V2 max: 252.1 cm/sec LVOT Max Antonio: 155.3 cm/sec Ao V2 mean: 166.3 cm/sec LV V1 max P.7 mmHg Ao max P.0 mmHg LV V1 VTI: 35.5 cm Ao mean P.1 mmHg DANIELLE(I,D): 2.1 cm2 Ao V2 VTI: 55.5 cm DANIELLE(V,D): 2.0 cm2 sev ratio: 0.64 DANIELLE indexed to BSA (cm^2/m^2): 1.1 MV E max antonio: 80.0 cm/sec TR max antonio: 285.2 cm/sec MV A max antonio: 99.6 cm/sec TR max P.5 mmHg MV E/A: 0.80 PA V2 max: 104.9 cm/sec Med Peak E' Antonio: 6.6 cm/sec PA V2 mean: 71.9 cm/sec E/E' med: 12.1 PA mean P.3 mmHg Lat Peak E' Antonio: 7.0 cm/sec PA pr(Accel): 37.9 mmHg E/E' lat: 11.4 E/e' average: 11.7 MV dec time: 0.26 sec MR ERO: 0.08 cm2 MR PISA: 1.2 cm2 SV(LVOT): 115.5 ml MR flow rate: 51.4 cm3/sec MR PISA radius: 0.44 cm Reading Physician:12:07 PM
--- NOTE | 2022-02-23 15:02 | DI.RAD.S_ITS ---
PROCEDURE: XR FOOT LT MIN 3V INDICATIONS: LEFT FOOT PAIN TECHNIQUE: 3 views of the foot were acquired. COMPARISON: None. FINDINGS: Bones: Normal bone mineralization. Small calcification noted projecting over the 2nd metatarsal phalangeal joint. No radiopaque foreign body present. First metatarsophalangeal joint space narrowing and subchondral cysts present. Soft tissues: No tibiotalar joint effusion. Achilles tendon appears normal. IMPRESSION: Small calcific density associated with 2nd MCP joint could reflect small sesamoid ossicle or possible avulsion fracture. Correlate with point tenderness and/or additional imaging as clinically indicated Approved by: Wally Camacho M.D. on 02/23/2022 at 17:55
== END ==
PROVIDERS: PCP Internal Medicine; Referring Provider Internal Medicine Cardiovascular Disease; Visit Provider Internal Medicine Cardiovascular Disease
DX: R01.1 Cardiac murmur, unspecified (principal); I77.89 Other specified disorders of arteries and arterioles; I08.3 Combined rheumatic disorders of mitral, aortic and tricuspid valves; I70.0 Atherosclerosis of aorta; M79.672 Pain in left foot
CPT/HCPCS: 73630; 93306

== ENCOUNTER → 2022-06-23 10:00 | Outpatient (CLI) | payer MEDICARE, SELFPAY ==
--- NOTE | 2022-06-23 | DI.RAD.S_ITS ---
PROCEDURE: XR LUMBAR SPINE 2-3V INDICATIONS: BACK PAIN TECHNIQUE: 3 views of the lumbar spine were acquired. COMPARISON: Merged With [facility], CT, CT KIDNEY URETER BLADDER (KUB), 11/23/2021, 12:22. FINDINGS: Bones: 5 [id number] vertebrae are present. There is normal bony alignment. Age indeterminate superior endplate compression deformity involving L2 vertebral body is seen with up to 20% loss of L2 vertebral body height anteriorly. Degenerative endplate changes are noted throughout lumbar spine. No suspicious bony lesions. Soft tissues: Overlying bowel gas pattern is normal. No suspicious soft tissue calcifications. IMPRESSION: Age indeterminate anterior wedge compression deformity at L2 level which is a new finding since 11/23/2021. Degenerative disc disease throughout lumbar spine. No other compression fracture or spondylolisthesis is seen. Dictated by: Riley Mejia M.D. on 06/23/2022 at 14:42 Approved by: Riley Mejia M.D. on 06/23/2022 at 14:50
--- NOTE | 2022-06-23 | DI.RAD.S_ITS ---
PROCEDURE: XR HIP W PEL IF DONE BILAT 2V INDICATIONS: HIP PAIN TECHNIQUE: AP pelvis with lateral view(s) of the bilateral hip(s). COMPARISON: None. FINDINGS: Bones: Patient is status post prior left total hip arthroplasty with anatomic left hip alignment. No gross hardware loosening or failure. Moderate to severe right hip joint osteoarthritic changes are seen. No fractures or dislocations. No evidence of avascular necrosis of femoral head. Pelvic ring appears intact. No suspicious bony lesions. Soft tissues: The visualized bowel gas pattern is normal. No suspicious soft tissue calcifications. IMPRESSION: 1. Prior left total hip arthroplasty with anatomic left hip alignment. No fracture or dislocation. No gross hardware loosening or failure. 2. Severe right hip joint osteoarthritis. No fracture or dislocation. No evidence of avascular necrosis. Dictated by: Riley Mejia M.D. on 06/23/2022 at 14:51 Approved by: Riley Mejia M.D. on 06/23/2022 at 14:52
== END ==
PROVIDERS: PCP Family Medicine; Referring Provider Chiropractor; Visit Provider Chiropractor
DX: M51.36 Other intervertebral disc degeneration, lumbar region (principal); M16.11 Unilateral primary osteoarthritis, right hip; M99.13 Subluxation complex (vertebral) of lumbar region; M54.51 Vertebrogenic low back pain; M99.06 Segmental and somatic dysfunction of lower extremity; M25.559 Pain in unspecified hip; M43.8X6 Other specified deforming dorsopathies, lumbar region; Z96.642 Presence of left artificial hip joint
CPT/HCPCS: 72100; 73521

== ENCOUNTER 2022-08-25 08:44 | Emergency (ER) | payer MEDICARE, SELFPAY ==
[2022-08-25 08:52] VITALS: BP 170/78; PULSE 70; RESP 18; O2SAT 96; BMI 24.0
--- NOTE | 2022-08-25 08:55 | DI.US.S_ITS ---
PROCEDURE: US PERIPH VENOUS LOW EXTREM LT INDICATIONS: THIGH SWELLING TECHNIQUE: Real-time imaging, as well as color and pulse Doppler interrogation, were performed of the lower extremity deep veins from the inguinal ligament to the popliteal fossa. COMPARISON: None. FINDINGS: The common femoral, femoral and popliteal veins are normally compressible, and free of intraluminal thrombus. Color and pulse Doppler demonstrate normal phasic intraluminal flow. There is normal augmentation response to distal compression maneuver. IMPRESSION: No evidence of DVT in visualized left lower extremity veins. Dictated by: Riley Mejia M.D. on 08/25/2022 at 9:30 Approved by: Riley Mejia M.D. on 08/25/2022 at 9:31
--- NOTE | 2022-08-25 09:16 | ED_ITS ---
HPI - Extremity Problem General Chief complaint: Extremity Problem,Nontraumatic Stated complaint: Dr patrick swelling in thigh Time Seen by Provider: 08/25/22 08:55 Source: patient Mode of arrival: Ambulatory History of Present Illness HPI Narrative: Patient 87-year-old male history of atrial fibrillation on Xarelto pacemaker, hyperlipidemia presents today with severe left hamstring pain and swelling. He reports that he was doing some new hamstring stretches he was maybe more aggressive than he should have been 2 days ago. Today he has intense swelling no erythema or fever. Initially initially seen at PCP office sent here to rule out DVT. He is able to stand and walk but it is painful he took a 1000 mg of Tylenol prior to arrival. Unable to sit secondary to pain and swelling. No numbness tingling or weakness. No calf pain. Significant varicose veins no prior history of DVT. Related Data Home Medications Medication Instructions Recorded Confirmed cholecalciferol (vitamin D3) 25 75 mcg PO DAILY 11/05/20 06/17/22 mcg (1,000 unit) capsule acetaminophen 650 mg tablet 650 mg PO Q6H PRN Pain (Scale 01/10/22 06/17/22 Score 4-6) rivaroxaban 15 mg tablet (Xarelto) 15 mg PO DAILY 04/26/22 06/17/22 Previous Rx's Medication Instructions Recorded atorvastatin 40 mg tablet 40 mg PO DAILY #90 tabs 06/17/22 nirmatrelvir 300 mg (150 mg See Rx Instructions PO .COMPLEX 06/17/22 x2)-ritonavir 100 mg tablet,dose #30 ea pack(EUA) (Paxlovid) oxycodone 5 mg tablet 5 mg PO Q6H PRN pain #10 tabs 08/25/22 Allergies Allergy/AdvReac Type Severity Reaction Status Date / Time Penicillins Allergy swelling Verified 06/17/22 08:06 Review of Systems Review of Systems ROS Unobtainable: All systems reviewed & are unremarkable except as noted in HPI and below Patient History Medical History Aortic stenosis Bladder calculus Calculus of kidney Carotid artery plaque Cataract CKD (chronic kidney disease) stage 3, GFR 30-59 ml/min Colon polyps Diverticular disease Dupuytren contracture Foot pain History of kidney stones Hx of bladder cancer Hyperlipidemia Hyperparathyroidism Low vitamin D level Paroxysmal A-fib Recurrent skin cancer 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 Right renal stone Sick sinus syndrome due to SA node dysfunction Spondylosis of lumbar region without myelopathy or radiculopathy Stage 3a chronic kidney disease Surgical History H/O circumcision H/O hernia repair History of hip replacement Pacemaker Social History marital status: household members: spouse lives independently: Yes occupational status: employed leisure activities: exercise Smoking Status: Never smoker alcohol intake: current substance use type: does not use Smoking Status: Never smoker alcohol intake frequency: 0-2 drinks per day Substance Use Type: does not use Exam Initial Vital Signs Initial Vital Signs: Vital Signs Pulse Rate 70 08/25/22 08:52 Respiratory Rate 18 08/25/22 08:52 Blood Pressure 170/78 H 08/25/22 08:52 Pulse Oximetry 96 08/25/22 08:52 Oxygen Delivery Method Room Air 08/25/22 08:52 GENERAL: Alert very pleasant 87-year-old male CARDIOVASCULAR: peripheral pulses in tact, cap refill <2 sec RESPIRATORY: No respiratory distress, speaks in full sentences without difficulty EXTREMITIES: Normal range of motion, no clubbing or edema. Neurovascularly intact Left leg lower extremity hamstring area is swollen and tender non erythematous insertion at hamstring is nontender able to flex and extend the knee unable to sit secondary to pain calf is soft. Right leg is within normal limits NEUROLOGICAL: Cranial nerves II through XII grossly intact. Normal gait and speech. SKIN: Warm, dry, no petechiae, no rashes or lesions. Course Orders Ordered: ED Orders 08/25/22 08:55 US periph venous low extrem lt Stat Vital Signs Vital signs: Vital Signs - 8 hr 08/25/22 08:52 Pulse Rate 70 Respiratory Rate 18 Blood Pressure 170/78 H Pulse Oximetry 96 Oxygen Delivery Method Room Air MDM - Extremity (Nontraumatic) Imaging Data US - DVT: Radiologist's Impression: PROCEDURE:? US PERIPH VENOUS LOW EXTREM LT ? INDICATIONS:? THIGH SWELLING ? TECHNIQUE:? Real-time imaging, as well as color and pulse Doppler interrogation, were performed of the lower extremity deep veins from the inguinal ligament to the popliteal fossa.? ? COMPARISON:? None. ? FINDINGS:? The common femoral, femoral and popliteal veins are normally compressible, and free of intraluminal thrombus.? Color and pulse Doppler demonstrate normal phas ic intraluminal flow.? There is normal augmentation response to distal compression maneuver. ? ? IMPRESSION:? No evidence of DVT in visualized left lower extremity veins. ? ? Dictated by: Riley Mejia M.D. on 08/25/2022 at 9:3 MDM Narrative Medical decision making narrative: Patient 87-year-old male history of atrial fibrillation on Xarelto presenting today with left hamstring pain and swelling sent from PCP concern for DVT. Pain and swelling started after aggressive stretching. Ultrasound is negative for DVT. I suspect more of a pulled muscle rather than other etiology. It is not erythematous no evidence cellulitis. It is painful to sit down. He is on Xarelto NSAIDs not recommended secondary to increased bleeding. Oxycodone initially however he declined. He is already did a 1000 of Tylenol. After further discussion oxycodone without Tylenol is probably a better option. He is able to ambulate without any issue unlikely a ruptured hamstring I suspect more of a strain. Discharge Plan Departure Patient Disposition: Home Clinical Impression: Left hamstring muscle strain Instructions: DI for Hamstring Strain Activity Restrictions/Additional Instructions: *You have been diagnosed with hamstring strain *What to do: Elevate and ice or Enoc wrap as needed. If still having pain and swelling in 2-3 weeks he may require an outpatient MRI *Continue to take medications as directed Oxycodone 5 mg (or you may break in half) every 6 hours if needed for severe pain--> [facility] Tylenol 1000 mg every 6 hours if needed for [id number] pain *Follow up with your primary care provider in 2-3 days or call [phone] *Return to ER if you should have increased pain swelling inability to walk or any new, worsening or concerning symptoms CONTROLLED SUBSTANCE DISCHARGE (Narcotoic/benzodiazepine/Flexeril/Phenergan) 1. You have been prescribed narcotic medications, it does have acetaminophen/Tylenol/paracetamol in it, DO NOT TAKE MORE THAN 4,00mg in 24 hours of Tylenol. TRAMADOL DOES NOT CONTAIN TYLENOL 2. Please understand that we cannot provide further refills of narcotics, benzodiazepines or controlled substances through the ED and her pain management will need to be through your provider. 3. While on these medications you cannot drive or operate heavy machinery. 4. You cannot sign legal documents or perform any duties such as this. 5. As long as you're taking opiate pain medications he should also be taking a stool softener such as Colace, Dulcolax, MiraLAX or prune juice, to help avoid constipation. Prescriptions: New oxycodone 5 mg tablet 5 mg PO Q6H PRN (Reason: pain) Qty: 10 0RF No Action Paxlovid (EUA) 300 mg (150 mg x 2)-100 mg tablets,dose pack See Rx Instructions PO .COMPLEX Qty: 30 0RF Rx Instructions: take TWO 150 mg tablets of nirmatrelvir with ONE 100 mg tablet of ritonavir twice daily for 5 days PO atorvastatin 40 mg tablet 40 mg PO DAILY Qty: 90 3RF cholecalciferol (vitamin D3) 25 mcg (1,000 unit) capsule 75 mcg PO DAILY acetaminophen 650 mg Tablet 650 mg PO Q6H PRN (Reason: Pain (Scale Score 4-6)) Xarelto 15 mg Tablet 15 mg PO DAILY Rx Instructions: must administer with evening meal Referrals: Chai Solis DO [Primary Care Provider] - Stand Alone Forms: Patient Portal/API
== END 2022-08-25 10:13 | disposition home or self-care (01) ==
PROVIDERS: Emergency Provider Emergency Medicine; PCP Family Medicine
DX: S76.812A Strain of other specified muscles, fascia and tendons at thigh level, left thigh, initial encounter (principal); X50.9XXA Other and unspecified overexertion or strenuous movements or postures, initial encounter
CPT/HCPCS: 93971; 99283

== ENCOUNTER 2022-09-19 09:02 | Day surgery (SDC) | payer MEDICARE, SELFPAY ==
[2022-09-19] MEDS: LACTATED RINGERS 1,000 ML 100 ML IV (09:31)
[2022-09-19 09:32] VITALS: BP 140/68; PULSE 67; RESP 16; TEMP 36.4; O2SAT 100; BMI 23.9
--- NOTE | 2022-09-19 10:06 | PM.HP.1 ---
History of Present Illness History of Present Illness Date Patient Seen: 09/19/22 Time Patient Seen: 10:06 Chief complaint: Dx Colonoscopy Narrative: Here for colon polyp surveillance. Off Xarelto. 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 Stage 3a chronic kidney disease Surgical History H/O circumcision H/O hernia repair History of hip replacement Pacemaker Social History marital status: household members: spouse lives independently: Yes occupational status: employed leisure activities: exercise Smoking Status: Never smoker alcohol intake: current substance use type: does not use Meds Home Medications and Allergies Home Medications Medication Instructions Recorded Confirmed Type cholecalciferol (vitamin D3) 25 75 mcg PO DAILY 11/05/20 09/19/22 History mcg (1,000 unit) capsule acetaminophen 650 mg tablet 650 mg PO Q6H PRN Pain (Scale 01/10/22 09/19/22 History Score 4-6) rivaroxaban 15 mg tablet (Xarelto) 15 mg PO DAILY 04/26/22 09/19/22 History atorvastatin 40 mg tablet 40 mg PO DAILY 09/19/22 09/19/22 History Allergies Allergy/AdvReac Type Severity Reaction Status Date / Time Penicillins Allergy swelling Verified 09/19/22 09:13 Exam Vital Signs (past 8 hours): - 09/19/22 09:32 Temperature 97.6 F Pulse Rate 67 Respiratory Rate 16 Blood Pressure 140/68 Pulse Oximetry 100 Oxygen Delivery Method Room Air Oxygen Delivery Method Room Air Const General: cooperative HENMT Head: normal to inspection Eyes General: appearance normal, both eyes and all related structures Neck Neck: normal visual inspection Chest Chest: normal inspection of the chest Resp Effort & Inspection: normal respiratory effort Cardio Rate: regular rate GI Inspection: normal to inspection Skin General: no rashes or lesions noted Neuro General: patient alert and patient awake Extrem General: normal to inspection and no pedal edema Psych Appearance: grossly normal Assessment & Plan Assessment & Plan narrative: 87-year-old with a history of polyps. One of them was removed piecemeal an early surveillance is appropriate. Colonoscopy is pursued today.
--- NOTE | 2022-09-19 10:08 | PM.PREOP ---
Pre-operative Note Interval Note History & Physical reviewed/Exam performed by Physician: Yes Changes to H&P: No ASA Class (for procedural sedation): III
--- NOTE | 2022-09-19 11:13 | P.OP.COLON_ITS ---
Operative Date/Time/Diagnoses Date of procedure: 09/19/22 Time of procedure: 11:13 Pre-op diagnosis: Colon polyp surveillance Post-op diagnosis: same Procedure & Clinicians Study performed: Colonoscopy Same procedure as scheduled: Yes Indications: Colon polyps surveillance Surgeon: Lebron Larson Procedure Notes SCOAP/Timeout: Done Procedure in detail: After the risks and benefits were explained, written and verbal informed consent was obtained. The patient was brought into the procedure room and placed into the left lateral decubitus position. Please see anesthesia notes for sedation details. Digital rectal examination was accomplished. The scope was introduced into the patient and advanced under direct visualization to the cecum as identified by the appendiceal orifice and ileocecal valve. The scope was slowly withdrawn to carefully examine the mucosa for any defects or lesions. Comprehensive imaging was accomplished throughout the rectum including the dentate line. The colon was decompressed, the scope was then removed from the patient who tolerated the procedure well. Adult colonoscope Bowel prep adequate Scope withdrawal time: 11 minutes Sedation minutes: 21 Specimen(s): none sent Complications: none Impression: The patient had extensive sigmoid diverticulosis. I did not appreciate any significant polyps throughout. We had excellent visualization of the previously placed tattoo in the transverse and there was no evidence of any mucosal a bnormality to suggest recurrent adenoma at this location. Photographs were taken. Grade 1-2 hemorrhoids were noted on direct views. Endoscopic diagnosis 1. Grade 1-2 hemorrhoids 2. Diverticulosis Post-procedure Plan for aftercare: 1. Okay to resume Xarelto today. 2. Follow up GI Clinic 3 years to discuss any type of surveillance colonoscopy. Disposition: PACU
[2022-09-19 11:16] VITALS: BP 87/54; PULSE 60; RESP 14; TEMP 36.8; O2SAT 97
[2022-09-19 11:20] VITALS: BP 89/54; PULSE 60; RESP 12; TEMP 36.8; O2SAT 97
[2022-09-19 11:25] VITALS: BP 101/58; PULSE 60; RESP 12; TEMP 36.8; O2SAT 99
[2022-09-19 11:34] VITALS: BP 119/64; PULSE 60; RESP 14; TEMP 36.8; O2SAT 98
== END 2022-09-19 12:00 | disposition home or self-care (01) ==
PROVIDERS: PCP Family Medicine; Referring Provider Internal Medicine Gastroenterology; Visit Provider Internal Medicine Gastroenterology
PROC: 0DJD8ZZ Inspection of Lower Intestinal Tract, Via Natural or Artificial Opening Endoscopic (ICD-10-PCS; CPT 45378; principal; 2022-09-19 10:00)
DX: Z12.11 Encounter for screening for malignant neoplasm of colon (principal); Z86.010 Personal history of colon polyps; K64.1 Second degree hemorrhoids; K57.30 Diverticulosis of large intestine without perforation or abscess without bleeding
CPT/HCPCS: G0105; J2704

== ENCOUNTER → 2023-03-01 08:52 | Outpatient (CLI) | payer MEDICARE, SELFPAY ==
[2023-03-01 10:02] LABS: Alanine Aminotransferase 32 IU/L (<50); Albumin Globulin Ratio 1.3 (1.0-2.8); Alkaline Phosphatase 66 U/L (38-126); BUN Creatinine Ratio 19.6 (6-22); Bilirubin Total 1.3 mg/dL (0.2-1.3); Blood Urea Nitrogen 30 mg/dL (9-20); Calcium 9.4 mg/dL (8.4-10.2); Carbon Dioxide 28 mmol/L (22-32); Chloride 104 mmol/L (98-107); Cholesterol 143 mg/dL (140-199); Estimated Glomerular Filt Rate 44 mL/min (>60); Glucose 86 mg/dL (80-110); HDL Cholesterol 84 mg/dL (40-60); HEMOLYSIS < 15 (0-50); LDL Cholesterol Calculated 48 mg/dL (<100); Potassium 4.2 mmol/L (3.4-5.1); Sodium 139 mmol/L (137-145); Triglycerides 56 mg/dL (35-150)
[2023-03-01 10:28] LABS: Thyroid Stimulating Hormone 3.34 uIU/mL (0.47-4.68)
[2023-03-03 16:03] LABS: Aspartate Aminotransferase 35 IU/L (17-59)
== END ==
LOC: LAB 08:54
PROVIDERS: PCP Family Medicine; Referring Provider Internal Medicine Cardiovascular Disease; Visit Provider Internal Medicine Cardiovascular Disease
DX: I48.0 Paroxysmal atrial fibrillation (principal); E78.5 Hyperlipidemia, unspecified; I45.10 Unspecified right bundle-branch block
CPT/HCPCS: 36415; 80053; 80061; 83735; 84443

== ENCOUNTER → 2023-03-23 07:16 | Outpatient (CLI) | payer MEDICARE, SELFPAY ==
--- NOTE | 2023-03-23 07:18 | DI.US.S_ITS ---
PROCEDURE: US ARTERIAL DUPLEX LE BI INDICATIONS: Atherosclerosis TECHNIQUE: Color and pulse Doppler interrogation was performed of both lower extremity arterial systems, with image documentation. COMPARISON: None. FINDINGS: Right lower extremity: Common femoral artery: 71 cm/sec, with triphasic flow. Deep femoral artery: 73 cm/sec, with biphasic flow. Proximal superficial femoral artery: 62 cm/sec, with try phasic flow. Mid superficial femoral artery: 77 cm/sec, with triphasic flow. Distal superficial femoral artery: 45 cm/sec, with triphasic flow. Popliteal artery: 38 cm/sec, with biphasic flow. Posterior tibial artery: 77 cm/sec, with biphasic flow. Anterior tibial artery/dorsalis pedis: 21 cm/sec, with biphasic flow. Cesar-scale imaging description: Scattered plaque. No focal hemodynamically significant stenosis. Left lower extremity: Common femoral artery: 90 cm/sec, with biphasic flow. Deep femoral artery: 36 cm/sec, with biphasic flow. Proximal superficial femoral artery: 75 cm/sec, with biphasic flow. Mid superficial femoral artery: 78 cm/sec, with biphasic flow. Distal superficial femoral artery: 45 cm/sec, with biphasic flow. Popliteal artery: 56 cm/sec, with biphasic flow. Posterior tibial artery: 67 cm/sec, with biphasic flow. Anterior tibial artery/dorsalis pedis: 59 cm/sec, with biphasic flow. Cesar-scale imaging description: Mild atheromatous plaque. No focal hemodynamically significant stenosis. IMPRESSION: 1. Biphasic and triphasic waveforms throughout without focal hemodynamically significant stenosis. Dictated by: Dahiana Marti M.D. on 03/23/2023 at 14:56 Approved by: Dahiana Marti M.D. on 03/23/2023 at 14:58
--- NOTE | 2023-03-23 07:18 | DI.US.S_ITS ---
PROCEDURE: US ABD AORTA ANEURYSM SCREEN INDICATIONS: Atherosclerosis of aorta TECHNIQUE: Real time scanning was performed of the aorta and iliac arteries, with image documentation. COMPARISON: None. FINDINGS: Aorta: Proximal aortic diameter measures 2.5 cm. Mid-aorta measures 2.1 cm. Distal aortic diameter is 1.4 cm. Iliac arteries: Right common iliac artery measures 1.3 cm. Left common iliac artery measures 1.2 cm. IMPRESSION: Abdominal aortic ectasia. 5 year sonographic surveillance recommended. Dictated by: Dahiana Marti M.D. on 03/23/2023 at 14:45 Approved by: Dahiana Marti M.D. on 03/23/2023 at 14:46
--- NOTE | 2023-03-28 03:51 | DI.NM.S_ITS ---
DATE OF SERVICE: 03/27/2023 PROCEDURE: Exercise perfusion study. INDICATIONS: Arthrosclerotic vascular disease, underlying AFib, sick sinus syndrome, permanent pacemaker. RADIOPHARMACEUTICAL: 24.4 millicurie technetium-99m Myoview IV was injected at stress and 25 millicurie technetium-99m Myoview IV was injected at rest. CARDIAC STRESS: The patient underwent exercise stress test under the supervision of an attending staff. He walked on David protocol for 9 minutes, achieved maximum heart rate of 130, which was 96% of target heart rate. Resting blood pressure 160/80 and peak blood pressure 196/90 mmHg. JENAE -92%. 10.1 METS of workload achieved. Baseline rhythm sinus with right bundle branch block and left anterior fascicular block. During stress no convincing ischemic EKG changes seen. It appears to be that patient has a limb lead reversal. No new significant arrhythmias seen. No chest pain. RAW DATA: There is increased subdiaphragmatic activity. GATED STUDY: Stress LV ejection fraction 73% without any obvious wall motion abnormalities. Resting end-diastolic volume 111 mL. TID ratio 1.08, which is within normal limits. Lung/heart ratio 0.27, which is within normal limits. MYOCARDIAL PERFUSION SCAN: Stress supine, resting supine and stress prone images were compared to each other. Stress supine and resting supine images revealed moderate size, mild to moderately decreased perfusion of inferior wall extending into the inferior apex, which got significantly improved during stress prone images, suggestive of diaphragmatic tissue attenuation artifact. Overall, summed stress score 0 and summed rest score 1. No convincing ischemia infarction pattern seen. CONCLUSION: I will call this study likely a normal myocardial perfusion study, with evidence of diaphragmatic tissue attenuation artifact, which got improved during stress prone images. Summed stress score 0. Preserved left ventricular function. Excellent exercise tolerance. The patient is 87 years old and walked on David protocol for 9 minutes. Functional aerobic impairment -92%. Normal hemodynamic response. No anginal symptoms. Overall, low-risk myocardial perfusion scan. Kwasi Batista - TITO/ravin/darien doc#: [id number]/job#: [id number] dd: 03/27/2023 16:50:00 dt: 03/28/2023 03:33:00 DICTATING MD/COPIES TO: Fabiola Salcedo MD COPIES MNE: PATRICIA;
== END ==
LOC: NUCM 07:17
PROVIDERS: PCP Family Medicine; Referring Provider Internal Medicine Cardiovascular Disease; Visit Provider Internal Medicine Cardiovascular Disease
DX: I77.811 Abdominal aortic ectasia (principal); I48.0 Paroxysmal atrial fibrillation; I70.0 Atherosclerosis of aorta; I73.9 Peripheral vascular disease, unspecified; I49.5 Sick sinus syndrome; Z95.0 Presence of cardiac pacemaker
CPT/HCPCS: 76706; 78452; 93017; 93925; A9502

== ENCOUNTER → 2023-04-04 14:31 | Outpatient (CLI) | payer MEDICARE, SELFPAY ==
--- NOTE | 2023-04-04 14:33 | DI.RAD.S_ITS ---
PROCEDURE: XR KUB INDICATIONS: pain x 1 mo right side TECHNIQUE: One view of the abdomen acquired. COMPARISON: [facility], CR, XR KUB, 12/22/2020, 12:31. FINDINGS: Surgical changes and devices: There is prior left total hip arthroplasty. Pacemaker leads are also noted. Bowel: Fecal stasis throughout the colon is seen. No gross peritoneal free air. Soft tissues: No suspicious abdominal calcifications. Visualized solid organ contours appear normal in size. Bones: No suspicious bony lesions. IMPRESSION: No gross renal calcifications. Tjab-vs-scttobde constipation. No gross free air. Dictated by: Riley Mejia M.D. on 04/04/2023 at 16:52 Approved by: Riley Mejia M.D. on 04/04/2023 at 16:52
--- NOTE | 2023-04-04 14:33 | DI.RAD.S_ITS ---
PROCEDURE: XR LUMBAR SPINE 2-3V INDICATIONS: pain x 1 mo right side TECHNIQUE: 3 views of the lumbar spine were acquired. COMPARISON: [facility], CR, XR LUMBAR SPINE 2-3V, 06/23/2022, 10:04. FINDINGS: Bones: 5 [id number]-dsy-acmhsyv vertebrae are present. Very mild leftward curvature of thoracolumbar spine centered at T12-L1 level is seen. There is mild straightening of normal lumbar lordosis. Loss of disc height, degenerative endplate changes and bilateral facet arthrosis throughout lumbar spine is seen. Chronic appearing superior endplate anterior wedge compression deformity at L2 level is seen with up to 10% loss of L2 vertebral body height unchanged from prior study. No acute vertebral body compression fractures. No suspicious bony lesions. Soft tissues: Overlying bowel gas pattern is normal. No suspicious soft tissue calcifications. IMPRESSION: Degenerative disc disease throughout lumbar spine. Chronic appearing mild superior endplate compression deformity at L2 level. No acute compression fracture or significant spondylolisthesis. Very mild leftward curvature of thoracolumbar spine as above. Dictated by: Riley Mejia M.D. on 04/04/2023 at 16:50 Approved by: Riley Mejia M.D. on 04/04/2023 at 16:52
[2023-04-04 15:43] LABS: Appearance Urine UA CLEAR; Bilirubin Urine UA NEGATIVE (NEGATIVE); Color Urine UA YELLOW; Glucose Urine UA NEGATIVE (Negative); Ketones Urine UA NEGATIVE (NEGATIVE); Leukocyte Esterase Urine UA 1+ (NEGATIVE); Nitrite Urine UA NEGATIVE (Negative); Occult Blood Urine UA 2+ (Negative); Protein Urine UA NEGATIVE (Negative); Urobilinogen Urine UA 0.2 E.U./dL (0.2); pH Urine UA 5.5 (4.5-8.0)
[2023-04-04 16:03] LABS: Bacteria Urine None Seen; Culture Indicated Urine Cult Not Indicated; RBC Urine 1-5/HPF (0-5/HPF); Squamous Epithelial Cell Urine 10-30 /HPF (0-5/HPF); Urine Volume 10mL (spun); WBC Urine 1-5/HPF (0-5/HPF)
[2023-04-04 16:30] LABS: Add Manual Diff / Slide Review NO; Basophils Absolute Auto 0 /uL (0-100); Basophils Percent Auto 0.3 % (0-2); Eosinophils Absolute Auto 0 /uL (0-450); Eosinophils Percent Auto 0.2 % (2-4); Hematocrit 33.7 % (41-53); Hemoglobin 11.5 g/dL (13.5-17.5); Lymphocytes Absolute Auto 2000 /uL (1100-4500); Lymphocytes Percent Auto 31.2 % (25-40); Mean Corpuscular HGB Conc 34.1 % (30-36); Mean Corpuscular Hemoglobin 34.7 PG (26-34); Monocytes Absolute Auto 1400 /uL (0-900); Monocytes Percent Auto 22.4 % (3-14); Neutrophils Absolute Auto 2900 /uL (1500-7000); Neutrophils Percent Auto 45.9 % (50-75); Platelet Count 187 X10^3/uL (150-400); Red Blood Cell Count 3.31 X10^6/uL (4.5-5.9); Red Cell Distribution Width 17.6 % (11.6-14.8); White Blood Cell Count 6.4 X10^3/uL (4.5-11.0)
[2023-04-04 17:03] LABS: Alanine Aminotransferase 22 IU/L (<50); Albumin 4.4 g/dL (3.5-5.0); Albumin Globulin Ratio 1.3 (1.0-2.8); Alkaline Phosphatase 62 U/L (38-126); Aspartate Aminotransferase 31 IU/L (17-59); BUN Creatinine Ratio 13.7 (6-22); Bilirubin Total 1.7 mg/dL (0.2-1.3); Blood Urea Nitrogen 19 mg/dL (9-20); Calcium 9.5 mg/dL (8.4-10.2); Carbon Dioxide 27 mmol/L (22-32); Chloride 102 mmol/L (98-107); Estimated Glomerular Filt Rate 50 mL/min (>60); Globulin 3.3 g/dL (1.7-4.1); Glucose 80 mg/dL (80-110); HEMOLYSIS < 15 (0-50); Potassium 4.1 mmol/L (3.4-5.1); Sodium 137 mmol/L (137-145); Total Protein 7.7 g/dL (6.3-8.2)
== END ==
PROVIDERS: PCP Family Medicine; Referring Provider Physician Assistant; Visit Provider Physician Assistant
DX: M51.36 Other intervertebral disc degeneration, lumbar region (principal); R10.9 Unspecified abdominal pain; M43.8X6 Other specified deforming dorsopathies, lumbar region
CPT/HCPCS: 36415; 72100; 74018; 80053; 81001; 85025

== ENCOUNTER → 2023-04-06 13:46 | Outpatient (CLI) | payer MEDICARE, SELFPAY ==
--- NOTE | 2023-04-06 13:47 | DI.CT.S_ITS ---
PROCEDURE: CT IVP A/P W/WO INDICATIONS: hematuria, flank pain, hx bladder cancer TECHNIQUE: Optional 5 mm thick noncontrast images acquired from the diaphragm to the symphysis pubis. After the administration of intravenous contrast, 5 mm thick images acquired from the diaphragm to the symphysis pubis after a 10-minute delay. 2 mm thick coronal and sagittal reformats were then performed of the kidneys and ureters. For radiation dose reduction, the following was used: automated exposure control, adjustment of mA and/or kV according to patient size. COMPARISON: None. FINDINGS: Image quality: Diagnostic. Kidneys and Ureters: Punctate nonobstructing left-sided nephrolithiasis. No hydronephrosis. No perinephric fat stranding. There is normal bilateral renal enhancement. Renal calyces appear normal in morphology when filled with contrast. Opacified portions of both ureters demonstrate normal caliber Bladder: Trabeculated bladder wall. 8 millimeter calcified stone in the ureter urinary bladder there is a (448 Hounsfield unit). OTHER: Lower chest: Unremarkable. Liver: No solid mass. Gallbladder: No radiopaque gallstones or wall thickening. Biliary ducts: No biliary dilation. Pancreas: No ductal dilation. Spleen: Size is within normal limits. Adrenal Glands: No adrenal nodules. Stomach and Bowel: Normal colonic caliber, without significant wall thickening. Colonic diverticulosis without evidence of diverticulitis. Peritoneum: No abnormal intraperitoneal fluid. No free air. Ventral Wall: No hernia. Abdominal Nodes: No retroperitoneal or mesenteric adenopathy by size criteria. Vessels: Aorta and inferior vena cava are normal in size. PELVIS: Pelvic Organs: Prostatomegaly. Pelvic Nodes: No enlarged lymph nodes. Miscellaneous: Fat within the left inguinal hernia. Bones: No aggressive osseous abnormality. Chronic compression deformity of the L2 superior endplate. IMPRESSION: Punctate nonobstructing left-sided nephrolithiasis. 8 millimeter bladder stone. Colonic diverticulosis without evidence of diverticulitis. Dictated by: Farhan Hodgson M.D. on 04/06/2023 at 15:20 Approved by: Farhan Hodgson M.D. on 04/06/2023 at 15:29
== END ==
PROVIDERS: PCP Family Medicine; Referring Provider Physician Assistant; Visit Provider Physician Assistant
DX: N20.0 Calculus of kidney (principal); N21.0 Calculus in bladder; K57.90 Diverticulosis of intestine, part unspecified, without perforation or abscess without bleeding; R10.9 Unspecified abdominal pain; Z85.51 Personal history of malignant neoplasm of bladder; Z87.442 Personal history of urinary calculi
CPT/HCPCS: 74178; Q9967

== ENCOUNTER → 2023-04-10 10:10 | Outpatient (CLI) | payer MEDICARE, SELFPAY ==
[2023-04-10 11:47] LABS: Prostate Specific Antigen 2.01 ng/mL (0.10-4.00)
== END ==
PROVIDERS: PCP Family Medicine; Referring Provider Specialist; Visit Provider Specialist
DX: N21.0 Calculus in bladder (principal); N40.1 Benign prostatic hyperplasia with lower urinary tract symptoms
CPT/HCPCS: 36415; 84153

== ENCOUNTER 2023-05-08 10:17 | Day surgery (SDC) | payer MEDICARE, SELFPAY ==
[2023-05-04 14:47] VITALS: BMI 24.7
[2023-05-08] VITALS (8 sets, daily range): BP systolic 135–165; BP diastolic 72–92; PULSE 60–72; RESP 12–18; TEMP 36.1–36.8; O2SAT 94–100; BMI 24.9
--- NOTE | 2023-05-08 10:29 | PM.PREOP ---
Pre-operative Note Interval Note History & Physical reviewed/Exam performed by Physician: Yes Changes to H&P: No
[2023-05-08] MEDS: LACTATED RINGERS 1,000 ML 21 ML IV (10:56)
[2023-05-08] MEDS: ACETAMINOPHEN IV 1,000 MG/100 ML VIAL 400 MG IV (10:57)
--- NOTE | 2023-05-08 11:00 | SUR.OPER ---
Lithotomy on padded OR bed, head on pillow, arms secured on padded arm boards at <90 degrees abduction. Legs secured in padded yellow fins stirrups.
[2023-05-08] MEDS: CIPROFLOXACIN 400 MG/200 ML PIGGYBACK 200 MG IV (11:30)
[2023-05-08] MEDS: TRANEXAMIC ACID 1,000 MG in SODIUM CHLORIDE 0.9% 100 ML 200 MG IV (11:44)
--- NOTE | 2023-05-08 12:19 | PM.OP.1 ---
Operative Date/Time/Diagnoses Date of procedure: 05/08/23 Time of procedure: 12:05 Pre-op diagnosis: 1. Bladder calculus. 2. BPH Post-op diagnosis: same Procedure & Clinicians Procedure: 1. Cystoscopy/ Laser cystolitholapaxy. Same procedure as scheduled: Yes Indications: 1. Bladder calculus. 2. BPH. Surgeon: Carla Joel Click Yes if Unassisted: Yes Anesthesia Type: General Operative Notes Findings: 1. Urethra-normal caliber without annular stricture or lesion. 2. External sphincter-coapted with normal overlying urothelium and vascularity. 3. Prostate-5 cm length with moderately obstructing lateral lobes and very high median bar. Prominent mucosal vascularity. 4. 1 to 2+ trabeculation. Normal ureteral orifices bilaterally. Well-healed resection bed a left posterior-lateral floor. Index calculus previously described residing dependently in the bladder base. Closure Type: not applicable Specimen(s): other (Stone fragments) Applied: catheter ([address] Estimated Blood Loss (mL): 0 Procedure in detail: The patient was positioned supine administered general anesthesia. He was then repositioned in semi lithotomy in the lower abdomen, genitalia, and groin were then prepped and draped in sterile fashion. The continuous-flow laser cystoscope was then advanced lower urinary tract with the findings as described above. A 550 micron laser fiber was requested. All operating room personnel and patient were then fitted with laser safety eyewear. Lithotripsy was then commenced with excellent fragmentation. The stone into fragments were broken down to small pieces. The laser cystoscope working element was then removed and the Gilberto evacuator was used to remove much of the stone material. Stone material also was evacuated via the sheath of the laser cystoscope. The continuous-flow laser cystoscope working element was removed and replaced several times for repeat inspection of the bladder for clearance of all fragments. Hemostasis was excellent. The bladder was then left partially filled and the continuous-flow laser cystoscope was then removed. A 16 [place] catheter was then advanced lower urinary tract the balloon inflated 10 cc in the bladder contents drained before attaching it to gravity drainage. The patient was then repositioned in supine, was awakened, then transferred to recovery awakened stable condition. Complications: none Post-operative Disposition: PACU Plan for aftercare: Discharge home.
[2023-05-08] MEDS: PHENAZOPYRIDINE 100 MG TABLET 200 MG PO (12:40)
[2023-05-15 10:21] LABS: Size 3x3 mm (.); Uric Acid 100 % (.)
== END 2023-05-08 13:40 | disposition home or self-care (01) ==
PROVIDERS: PCP Family Medicine; Referring Provider Specialist; Visit Provider Specialist
PROC: 0TCB8ZZ Extirpation of Matter from Bladder, Via Natural or Artificial Opening Endoscopic (ICD-10-PCS; CPT 52317; principal; 2023-05-08 11:15)
DX: N21.0 Calculus in bladder (principal); N40.1 Benign prostatic hyperplasia with lower urinary tract symptoms; N13.8 Other obstructive and reflux uropathy; Z85.51 Personal history of malignant neoplasm of bladder; Z95.0 Presence of cardiac pacemaker
CPT/HCPCS: 52317; 82365; J0136; J0744; J2405; J2704

== ENCOUNTER → 2023-06-19 08:43 | Outpatient (CLI) | payer MEDICARE, SELFPAY ==
[2023-06-19 10:04] LABS: BUN Creatinine Ratio 14.1 (6-22); Blood Urea Nitrogen 23 mg/dL (9-20); Calcium 9.5 mg/dL (8.4-10.2); Carbon Dioxide 26 mmol/L (22-32); Chloride 107 mmol/L (98-107); Estimated Glomerular Filt Rate 41 mL/min (>60); Glucose 93 mg/dL (80-110); HEMOLYSIS < 15 (0-50); Potassium 4.6 mmol/L (3.4-5.1); Sodium 139 mmol/L (137-145)
== END ==
PROVIDERS: PCP Family Medicine; Referring Provider Family Medicine; Visit Provider Family Medicine
DX: N18.30 Chronic kidney disease, stage 3 unspecified (principal)
CPT/HCPCS: 36415; 80048

== ENCOUNTER → 2023-06-20 08:29 | Outpatient (CLI) | payer MEDICARE, SELFPAY ==
--- NOTE | 2023-06-20 08:30 | DI.CT.S_ITS ---
PROCEDURE: CT IVP A/P W/WO INDICATIONS: RT LOWER QUAD PAIN / HX OF KIDNEY STONE TECHNIQUE: Optional 5 mm thick noncontrast images acquired from the diaphragm to the symphysis pubis. After the administration of intravenous contrast, 5 mm thick images acquired from the diaphragm to the symphysis pubis after a 10-minute delay. 2 mm thick coronal and sagittal reformats were then performed of the kidneys and ureters. For radiation dose reduction, the following was used: automated exposure control, adjustment of mA and/or kV according to patient size. COMPARISON: [facility], CT, CT IVP A/P W/WO, 04/06/2023, 14:18. FINDINGS: Image quality: Degraded by metallic artifact. Kidneys and Ureters: Both kidneys are normal in size, without hydronephrosis . There is a 2 mm nonobstructing calculus within the inferior pole left kidney, as before. No right nephrolithiasis.. No perinephric fat stranding. There is normal bilateral renal enhancement. Renal calyces appear normal in morphology when filled with contrast. Opacified portions of both ureters demonstrate normal caliber Bladder: There is enlargement of the prostate and asymmetric indentation of the left inferior urinary bladder wall, limiting evaluation for neoplasm. Previously seen urinary bladder calculus is no longer present. OTHER: Lower chest: Unremarkable. Liver: No solid mass. Gallbladder: No radiopaque gallstones or wall thickening. Biliary ducts: No biliary dilation. Pancreas: No ductal dilation. Spleen: Size is within normal limits. Adrenal Glands: No adrenal nodules. Stomach and Bowel: Normal colonic caliber, without significant wall thickening. Appendix is not seen. No evidence of appendicitis. Peritoneum: No abnormal intraperitoneal fluid. No free air. Ventral Wall: No hernia. Abdominal Nodes: No retroperitoneal or mesenteric adenopathy by size criteria. Vessels: Aorta and inferior vena cava are normal in size. PELVIS: Pelvic Organs: Unremarkable. Pelvic Nodes: No enlarged lymph nodes. Miscellaneous: No inguinal hernias are seen. Bones: No aggressive osseous abnormality. Mild chronic L2 compression fracture is present, as before. Left hip arthroplasty has been performed. IMPRESSION: 1. No change in punctate left renal calculus. No evidence of urinary tract obstruction. 2. No evidence of renal neoplasm. 3. Prostate hypertrophy with consequent suboptimal evaluation of the urinary bladder base; recommend correlation with cystoscopy to exclude neoplasm. 4. Appendix not seen. No evidence of appendicitis. Dictated by: Sulema Bahena M.D. on 06/20/2023 at 9:52 Approved by: Sulema Bahena M.D. on 06/20/2023 at 9:58
== END ==
PROVIDERS: PCP Family Medicine; Referring Provider Family Medicine; Visit Provider Family Medicine
DX: N20.0 Calculus of kidney (principal); N40.0 Benign prostatic hyperplasia without lower urinary tract symptoms; R10.31 Right lower quadrant pain; M48.56XA Collapsed vertebra, not elsewhere classified, lumbar region, initial encounter for fracture
CPT/HCPCS: 74178; Q9967

== ENCOUNTER 2023-09-28 09:53 | Emergency (ER) | payer MEDICARE, SELFPAY ==
[2023-09-28 09:54] VITALS: BP 193/79; PULSE 79; RESP 14; TEMP 37.2; O2SAT 97; BMI 24.7
[2023-09-28 09:57] VITALS: BP 193/79; PULSE 82; O2SAT 98
--- NOTE | 2023-09-28 10:13 | ED.GENADULT ---
HPI - General Adult General Chief complaint: Abdominal Pain Stated complaint: Sharp Lower right stomach pain Time Seen by Provider: 09/28/23 10:07 Source: patient, RN notes reviewed and old records reviewed Mode of arrival: Ambulatory Limitations: no limitations History of Present Illness HPI narrative: 88-year-old male history of hypertension, dyslipidemia, BPH, CKD who presents with complaint of right lower abdominal pain. Patient states he has had this on and off for months if not sometimes longer. He states been more persistent lately and sharper in the last couple days. He states it is in the front but does come around from the back. Denies any midline back pain. He states Tylenol seems to alleviate his symptoms. He states no fevers or chills, no nausea or vomiting. No rash or skin changes. He does note movement does exacerbated at times. Denies any issues with bowel movements states stooling regularly with no black or bloody stools. No dysuria urgency frequency or hematuria. He has nocturia some difficulty starting stream but this is baseline according to patient. Patient called his primary care physician who is out of the office today and was directed here by his front office spec. Patient has had prior kidney stones, has had back problems in the past. He has had diverticulitis. Patient states feels little bit different lung knees. He has had prior hernia repair, patellar knee surgery and hip replacement. He does still have his appendix. He denies any tobacco, drinks 1 or 2 glasses of alcohol daily, no recreational drugs. Related Data Home Medications Medication Instructions Recorded Confirmed cholecalciferol (vitamin D3) 25 75 mcg PO DAILY 11/05/20 06/29/23 mcg (1,000 unit) capsule acetaminophen 650 mg tablet 650 mg PO Q6H PRN Pain (Scale 02/08/23 06/29/23 Score 4-6) aspirin 81 mg tablet 81 mg PO DAILY 05/08/23 06/29/23 allopurinol PO DAILY 06/19/23 06/29/23 Previous Rx's Medication Instructions Recorded atorvastatin 40 mg tablet 40 mg PO DAILY #90 tabs 06/19/23 tamsulosin 0.4 mg capsule 0.4 mg PO BEDTIME #90 caps 06/29/23 losartan 50 mg tablet 25 mg (1/2 x 50 mg) PO DAILY blood 07/12/23 pressure #90 tabs tramadol 50 mg tablet 50 mg PO Q6H PRN pain #10 tabs 09/28/23 Allergies Allergy/AdvReac Type Severity Reaction Status Date / Time Penicillins Allergy swelling Verified 09/28/23 10:00 Review of Systems Review of Systems ROS Unobtainable: All systems reviewed & are unremarkable except as noted in HPI and below Patient History Medical History Benign essential HTN History of bladder stone Bladder calculus Vitamin B deficiency Bladder cancer LAFB (left anterior fascicular block) RBBB (right bundle branch block) Atrial fibrillation 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 Foot pain Diverticular disease Colon polyps CKD (chronic kidney disease) stage 3, GFR 30-59 ml/min Paroxysmal A-fib Right renal stone History of kidney stones Hx of bladder cancer 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 Hyperparathyroidism Dupuytren contracture Cataract Carotid artery plaque Calculus of kidney Aortic stenosis Recurrent skin cancer Stage 3a chronic kidney disease Low vitamin D level Hyperlipidemia Surgical History H/O circumcision History of hip replacement H/O hernia repair Pacemaker (2018) Social History marital status: household members: spouse lives independently: Yes occupational status: employed leisure activities: exercise Smoking Status: Never smoker alcohol intake: current substance use type: does not use Smoking Status: Never smoker alcohol intake frequency: 0-2 drinks per day Substance Use Type: does not use Exam Narrative Exam Narrative: GENERAL: Alert and oriented x three, well-appearing male in mild distress. HEENT: Head normocephalic, atraumatic, EOMI, pupils reactive, face symmetric, moist mucous membranes NECK: Supple, full range of motion CARDIOVASCULAR: Regular rate and rhythm without murmurs, rubs or gallops. RESPIRATORY: Breath sounds equal bilaterally, no wheezes rales or rhonchi. ABDOMEN: Soft, nontender. Normoactive bowel sounds all 4 quadrants. No guarding or rebound, rigidity, no mass, no pulsatile mass or bruit : No CVA tenderness BACK: No cervical, thoracic or lumbar vertebral point tenderness. Patient does have increased pain when he stands and moves to the side. He is otherwise comfortable and was seated on the gurney during evaluation able to stand and move without issues. Patient has normal range of motion. Patient's gait is normal. Muscle strength is 5/5 in lower extremities, cap refill equal bilaterally. EXTREMITIES: Normal range of motion, no clubbing or edema. Neurovascularly intact NEUROLOGICAL: Cranial nerves II through XII grossly intact. Moving all extremities SKIN: Warm, dry, no petechiae, no rashes or lesions. Initial Vital Signs Initial Vital Signs: Vital Signs Temperature 98.9 F 09/28/23 09:54 Pulse Rate 79 09/28/23 09:54 Respiratory Rate 14 09/28/23 09:54 Blood Pressure 193/79 H 09/28/23 09:54 Pulse Oximetry 97 09/28/23 09:54 Oxygen Delivery Method Room Air 09/28/23 09:54 Course Orders Ordered: ED Orders 09/28/23 10:01 Urine Microscopic Stat 09/28/23 10:23 CT abdomen pelvis w con Stat 09/28/23 10:28 CBC Auto Diff [Complete Blood Count AUTO DIFF] Stat CMP [Comprehensive Metabolic Panel] Stat Lipase Stat Vital Signs Vital signs: Vital Signs - 8 hr 09/28/23 11:49 09/28/23 11:50 09/28/23 11:50 Pulse Rate 66 Respiratory Rate Blood Pressure 159/70 H Pulse Oximetry 95 100 Oxygen Delivery Method 09/28/23 11:51 09/28/23 12:00 Pulse Rate 68 60 Respiratory Rate 16 Blood Pressure 159/70 H Pulse Oximetry 100 99 Oxygen Delivery Method Room Air Room Air Medical Decision Making Lab Data 09/28/23 10:28 09/28/23 10:28 Labs: Lab Results 09/28/23 09/28/23 Range/Units 10:01 10:28 WBC 7.6 (4.5-11.0) X10^3/uL RBC 3.13 L (4.5-5.9) X10^6/uL Hgb 10.7 L (13.5-17.5) g/dL Hct 31.5 L (41-53) % MCV 100.5 H (80-100) fL MCH 34.0 (26-34) PG MCHC 33.8 (30-36) % RDW 18.6 H (11.6-14.8) % Plt Count 154 (150-400) X10^3/uL Neut % (Auto) Not Reportable Lymph % (Auto) Not Reportable [place] % (Auto) Not Reportable Eos % (Auto) Not Reportable Baso % (Auto) Not Reportable Lymph # (Auto) Not Reportable [place] # (Auto) Not Reportable Baso # (Auto) Not Reportable Total Counted 100 Seg Neutrophils % 38.0 (38-70) % Band Neutrophils % 4.0 (3-7) % Lymphocytes % (Manual) 18.0 L (25-45) % Atypical Lymphs % 17.0 H ( - 0) % Monocytes % (Manual) 23.0 H (2-11) % Neutrophils # (Manual) 3192 (8177-1466) /uL RBC Morphology Not Reportable Anisocytosis 2+ H Sodium 139 (137-145) mmol/L Potassium 4.9 (3.4-5.1) mmol/L Chloride 109 H (98-107) mmol/L Carbon Dioxide 23 (22-32) mmol/L BUN 30 H (9-20) mg/dL Creatinine 1.38 H (0.66-1.25) mg/dL Estimated GFR 50 L (>60) mL/min BUN/Creatinine Ratio 21.7 (6-22) Glucose 105 (80-110) mg/dL Calcium 9.1 (8.4-10.2) mg/dL Total Bilirubin 1.4 H (0.2-1.3) mg/dL AST 31 (17-59) IU/L ALT 20 (<50) IU/L Alkaline Phosphatase 66 (38-126) U/L Total Protein 8.0 (6.3-8.2) g/dL Albumin 4.5 (3.5-5.0) g/dL Globulin 3.5 (1.7-4.1) g/dL Albumin/Globulin Ratio 1.3 (1.0-2.8) Lipase 89 (23-300) U/L Urine RBC 0-1/hpf (0-5/HPF) Urine WBC 0-1/hpf (0-5/HPF) Ur Squamous Epith Cells 1-5 /hpf D (0-5/HPF) Urine Bacteria Occasional (0-1) (None) Ur Culture Indicated? Cult not indicated Vol Urine Centrifuged 10ml (spun) Urine Dip Bedside Urine Glucose Negative Bedside Urine Bilirubin - Negative Bedside Urine Ketone - Negative Urine Specific [place] 1.020 Bedside Urine Occult Blood - Negative Bedside Urine pH 5.5 Bedside Urine Protein - Negative Bedside Urine Urobilinogen - Negative Bedside Urine Nitrite - Negative Bedside Urine Leukocytes +/- 15 Esterase Point of care testing: Urine Dip Bedside Urine Glucose Negative Bedside Urine Bilirubin - Negative Bedside Urine Ketone - Negative Urine Specific [place] 1.020 Bedside Urine Occult Blood - Negative Bedside Urine pH 5.5 Bedside Urine Protein - Negative Bedside Urine Urobilinogen - Negative Bedside Urine Nitrite - Negative Bedside Urine Leukocytes +/- [address] scan - abdomen/pelvis: Radiologist's Impression: [address] [address] [address] Scan Report Signed Patient: Kwasi Batista MR#: [id number] : 1935 Acct:[id number] Age/Sex: 88 / M Date of Service: 09/28/23 Loc: ED Accession Number: [id number] Procedure: CT abdomen pelvis w con Ordering Provider: Ciera Calloway D.O. PROCEDURE: CT ABDOMEN PELVIS W CON INDICATIONS: RLQ pain, hx stones, back issues, does have appendix TECHNIQUE: After the administration of intravenous contrast, axial sections acquired from the lung bases to the pubic symphysis. Coronal and sagittal reformats were performed. For radiation dose reduction, the following was used: automated exposure control, adjustment of mA and/or kV according to patient size. COMPARISON: [facility], CT, CT IVP A/P W/WO, 06/20/2023, 8:35. FINDINGS: Image quality: Portions of the lower pelvis are suboptimally evaluated secondary to metallic streak artifact from hip arthroplasty. Lower Chest: Unchanged appearance of thickening in the right lower lobe likely scarring given stability. ABDOMEN: Liver: No solid mass. Steatosis. Gallbladder: No radiopaque gallstones or wall thickening. Biliary ducts: No biliary dilation. Pancreas: No ductal dilation. Spleen: Size is within normal limits. Adrenal Glands: No adrenal nodules. Kidneys and Ureters: No hydronephrosis. No solid mass. No complex renal cystic lesion which requires follow up. Punctate nonobstructing left renal calculus. Simple right renal cyst. Simple left renal parapelvic cysts. Stomach and Bowel: Normal colonic caliber, without significant wall thickening. Colonic diverticula are present without associated inflammatory change. Peritoneum: No abnormal intraperitoneal fluid. No free air. Ventral Wall: No significant ventral hernia. Abdominal Nodes: No retroperitoneal or mesenteric adenopathy by size criteria. Vessels: Aorta and inferior vena cava are normal in size. PELVIS: Pelvic Organs: Prostate gland is enlarged. Bladder: No bladder wall thickening, accounting for underdistention. Pelvic Nodes: No enlarged lymph nodes. Miscellaneous: Bilateral fat containing inguinal hernias are seen. Bones: Superior endplate deformity is present at L2, unchanged. IMPRESSION: Stable interval exam. Diverticulosis. Nonobstructing renal calculus. Prostate hypertrophy. Dictated by: Seble Jones M.D. on 09/28/2023 at 11:53 Approved by: Seble Jones M.D. on 09/28/2023 at 11:59 MDM Narrative Medical decision making narrative: 88-year-old male without reproducible pain on physical exam but patient does have increased pain with movement particularly when standing. He is otherwise well-appearing has a acute on chronic right lower abdominal pain that wraps around from the back. Because of age and change in the nature of his pain labs and imaging were obtained Labs show white count of 7.6 hemoglobin of 10, platelets of 154, MA fairly consistent with priors in the past 6 months. Patient does have an predominance of atypical lymphocytes and monocytes. CMP shows chronic kidney disease appears stable with a creatinine 1.38 BUN 30 sodium 139 potassium 4.9 chloride of 109 with a CO2 of 23 glucose is 105 calcium is 9.1 bilirubin is 1.4 has been elevated in the past. LFTs are otherwise normal. Normal albumin and globulin. Point of care urine shows positive leukocyte esterase. Your micro shows 1 red cell 1 white cell 1-[address] abdomen and pelvis shows stable interval exam diverticulosis, nonobstructing renal calculi prostatic hypertrophy, patient has bilateral fat containing hernias, superior endplate deformity present L2 unchanged patient has some simple left and right renal cysts. Discharge Plan Departure Patient Disposition: Home Clinical Impression: Right lower quadrant abdominal pain Activity Restrictions/Additional Instructions: Follow up with your physician for recheck. You have a normal white blood cell count but have an elevation of leukocytes and monocytes. Please follow up with your physician have your CBC rechecked in the future. Your CT imaging shows some stable changes but no obvious appendicitis, colitis or infections, no kidney stones within the ureter or other clear causes of your pain. You can continue to take Tylenol up to a 1000 mg every 6 hours as needed for pain. Please return if you are having rapidly worsening pain, new or worsening abdominal back or flank pain, fevers, vomiting, black or bloody stools or other new or concerning changes. Prescriptions: New tramadol 50 mg tablet 50 mg PO Q6H PRN (Reason: pain) Qty: 10 0RF No Action losartan 50 mg tablet 25 mg PO DAILY Qty: 90 3RF allopurinol PO DAILY atorvastatin 40 mg tablet 40 mg PO DAILY Qty: 90 3RF cholecalciferol (vitamin D3) 25 mcg (1,000 unit) capsule 75 mcg PO DAILY acetaminophen 650 mg tablet 650 mg PO Q6H PRN (Reason: Pain (Scale Score 4-6)) aspirin 81 mg Tablet 81 mg PO DAILY tamsulosin 0.4 mg capsule 0.4 mg PO BEDTIME Qty: 90 3RF Referrals: Chai Solis DO [Primary Care Provider] - Stand Alone Forms: Patient Portal/API
--- NOTE | 2023-09-28 10:23 | DI.CT.S_ITS ---
PROCEDURE: CT ABDOMEN PELVIS W CON INDICATIONS: RLQ pain, hx stones, back issues, does have appendix TECHNIQUE: After the administration of intravenous contrast, axial sections acquired from the lung bases to the pubic symphysis. Coronal and sagittal reformats were performed. For radiation dose reduction, the following was used: automated exposure control, adjustment of mA and/or kV according to patient size. COMPARISON: [facility], CT, CT IVP A/P W/WO, 06/20/2023, 8:35. FINDINGS: Image quality: Portions of the lower pelvis are suboptimally evaluated secondary to metallic streak artifact from hip arthroplasty. Lower Chest: Unchanged appearance of thickening in the right lower lobe likely scarring given stability. ABDOMEN: Liver: No solid mass. Steatosis. Gallbladder: No radiopaque gallstones or wall thickening. Biliary ducts: No biliary dilation. Pancreas: No ductal dilation. Spleen: Size is within normal limits. Adrenal Glands: No adrenal nodules. Kidneys and Ureters: No hydronephrosis. No solid mass. No complex renal cystic lesion which requires follow up. Punctate nonobstructing left renal calculus. Simple right renal cyst. Simple left renal parapelvic cysts. Stomach and Bowel: Normal colonic caliber, without significant wall thickening. Colonic diverticula are present without associated inflammatory change. Peritoneum: No abnormal intraperitoneal fluid. No free air. Ventral Wall: No significant ventral hernia. Abdominal Nodes: No retroperitoneal or mesenteric adenopathy by size criteria. Vessels: Aorta and inferior vena cava are normal in size. PELVIS: Pelvic Organs: Prostate gland is enlarged. Bladder: No bladder wall thickening, accounting for underdistention. Pelvic Nodes: No enlarged lymph nodes. Miscellaneous: Bilateral fat containing inguinal hernias are seen. Bones: Superior endplate deformity is present at L2, unchanged. IMPRESSION: Stable interval exam. Diverticulosis. Nonobstructing renal calculus. Prostate hypertrophy. Dictated by: Seble Jones M.D. on 09/28/2023 at 11:53 Approved by: Seble Jones M.D. on 09/28/2023 at 11:59
[2023-09-28 10:38] LABS: Add Manual Diff / Slide Review YES; Hematocrit 31.5 % (41-53); Hemoglobin 10.7 g/dL (13.5-17.5); Mean Corpuscular HGB Conc 33.8 % (30-36); Mean Corpuscular Volume 100.5 fL (80-100); Platelet Count 154 X10^3/uL (150-400); Red Blood Cell Count 3.13 X10^6/uL (4.5-5.9); Red Cell Distribution Width 18.6 % (11.6-14.8); White Blood Cell Count 7.6 X10^3/uL (4.5-11.0)
[2023-09-28 10:48] LABS: Neutrophils Absolute Manual 3192 /uL (3000-5900); Total Cells Counted 100
[2023-09-28 10:49] LABS: Anisocytosis 2+
[2023-09-28 10:51] LABS: Alanine Aminotransferase 20 IU/L (<50); Albumin 4.5 g/dL (3.5-5.0); Albumin Globulin Ratio 1.3 (1.0-2.8); Alkaline Phosphatase 66 U/L (38-126); Aspartate Aminotransferase 31 IU/L (17-59); BUN Creatinine Ratio 21.7 (6-22); Bilirubin Total 1.4 mg/dL (0.2-1.3); Blood Urea Nitrogen 30 mg/dL (9-20); Calcium 9.1 mg/dL (8.4-10.2); Carbon Dioxide 23 mmol/L (22-32); Chloride 109 mmol/L (98-107); Estimated Glomerular Filt Rate 50 mL/min (>60); Globulin 3.5 g/dL (1.7-4.1); Glucose 105 mg/dL (80-110); Lipase 89 U/L (23-300); Potassium 4.9 mmol/L (3.4-5.1); Sodium 139 mmol/L (137-145)
[2023-09-28 10:53] LABS: HEMOLYSIS 57 (0-50)
[2023-09-28 10:55] LABS: Bacteria Urine Occasional (0-1); Culture Indicated Urine Cult Not Indicated; RBC Urine 0-1/HPF (0-5/HPF); Squamous Epithelial Cell Urine 1-5 /HPF (0-5/HPF); Urine Volume 10mL (spun); WBC Urine 0-1/HPF (0-5/HPF)
[2023-09-28 11:49] VITALS: O2SAT 95
[2023-09-28 11:50] VITALS: BP 159/70; PULSE 66; O2SAT 100
[2023-09-28 11:51] VITALS: BP 159/70; PULSE 68; RESP 16; O2SAT 100
[2023-09-28 12:00] VITALS: PULSE 60; O2SAT 99
== END 2023-09-28 12:18 | disposition home or self-care (01) ==
PROVIDERS: Emergency Provider Emergency Medicine; PCP Family Medicine
DX: R10.31 Right lower quadrant pain (principal); R79.89 Other specified abnormal findings of blood chemistry
CPT/HCPCS: 74177; 80053; 81003; 81015; 83690; 85007; 85025; 99282; 99284; Q9967

== ENCOUNTER → 2023-10-09 09:48 | Outpatient (CLI) | payer MEDICARE, SELFPAY ==
[2023-10-09 10:23] LABS: Hematocrit 31.5 % (41-53); Hemoglobin 10.6 g/dL (13.5-17.5); Mean Corpuscular HGB Conc 33.7 % (30-36); Mean Corpuscular Hemoglobin 33.8 PG (26-34); Mean Corpuscular Volume 100.3 fL (80-100); Platelet Count 199 X10^3/uL (150-400); Red Blood Cell Count 3.14 X10^6/uL (4.5-5.9); Red Cell Distribution Width 18.5 % (11.6-14.8); White Blood Cell Count 9.4 X10^3/uL (4.5-11.0)
[2023-10-09 10:24] LABS: Add Manual Diff / Slide Review YES
[2023-10-09 10:41] LABS: Neutrophils Absolute Manual 5358 /uL (3000-5900); Total Cells Counted 100
[2023-10-09 10:45] LABS: Anisocytosis 1+; Macrocytosis 1+; Schistocytes 1+
[2023-10-09 11:12] LABS: Prostate Specific Antigen 4.84 ng/mL (0.10-4.00)
== END ==
PROVIDERS: PCP Family Medicine; Referring Provider Specialist; Visit Provider Specialist
DX: N40.1 Benign prostatic hyperplasia with lower urinary tract symptoms (principal); N13.8 Other obstructive and reflux uropathy; D64.9 Anemia, unspecified; N18.30 Chronic kidney disease, stage 3 unspecified
CPT/HCPCS: 36415; 51741; 84153; 85007; 85025; 99214

== ENCOUNTER → 2024-01-10 13:13 | Outpatient (CLI) | payer MEDICARE, SELFPAY ==
[2024-01-10 15:04] LABS: Prostate Specific Antigen 3.21 ng/mL (0.10-4.00)
== END ==
PROVIDERS: PCP Family Medicine; Referring Provider Urology; Visit Provider Urology
DX: N40.1 Benign prostatic hyperplasia with lower urinary tract symptoms (principal); N13.8 Other obstructive and reflux uropathy; Z85.51 Personal history of malignant neoplasm of bladder
CPT/HCPCS: 36415; 84153

== ENCOUNTER → 2024-04-10 12:17 | Outpatient (CLI) | payer MEDICARE, SELFPAY ==
--- NOTE | 2024-04-10 12:18 | DI.ECHO.S_ITS ---
[facility] : : [address] : [place] [address] : : [id number] : : Phone: [phone] Echocardiogram Report + + :Name: LANIE CRISTOBAL Study Date: 04/10/2024 Height: 70 in : :Hospital ReadingLocation: Weight: 173 lb : : Gender: Male BSA: 2.0 m2 : :: 1935 Age: 88 yrs BP: 134/78 mmHg: :Reason For Study: AORTIC STENOSIS : :Ordering Physician: TAMIA, : :CHUCK Performed By: Ailyn Leach : :Referring: CHUCK CANTRELL : + + Interpretation Summary The left ventricle is normal in size and wall thickness. The left ventricular ejection fraction is normal. The ejection fraction is estimated to be 60-65%. No significant change in LVEF from the previous study The right ventricle is borderline dilated. The right ventricular systolic function is normal. There is a pacemaker lead in the right ventricle. There is moderate mitral regurgitation. Compared to the prior echo study, there has been no change in the severity of mitral regurgitation. The aortic valve is moderately calcified. The peak aortic velocity is 2.4 m/sec. The aortic valve mean gradient is 16 mmHg. The peak aortic velocity on the previous exam was 2.5 m/sec. sev ratio: 0.54 The calculated aortic valve area is 1.9 cm2. There is mild aortic stenosis. There is mild to moderate tricuspid regurgitation. Previously moderate TR. The right ventricular systolic pressure is estimated to be at least 32 mmHg based on an estimated right atrial pressure of 3 mm Hg. Procedure: A two-dimensional transthoracic echocardiogram with color flow and Doppler was performed. The study quality was technically adequate. Comparison is made with the echocardiogram of 02/23/2022. The patient was in sinus rhythm with heart rates between 60-74 bpm during the exam. Left Ventricle: The left ventricle is normal in size and wall thickness. There is no thrombus. The ejection fraction is estimated to be 60-65%. The left ventricular ejection fraction is normal. There are no focal wall motion abnormalities. Diastolic parameters suggest a relaxation abnormality of the left ventricle, consistent with probable normal filling pressures. Right Ventricle: The right ventricle is borderline dilated. There is a pacemaker lead in the right ventricle. The right ventricular systolic function is normal. Atria: The left atrium is mildly dilated. The left atrium has mildly decreased in size since the prior echo exam. Right atrial size is normal. There is a catheter/pacemaker lead seen in the right atrium. There is no Doppler evidence for an interatrial shunt. Mitral Valve: The mitral valve leaflets appear mildly thickened, but open well. There is moderate mitral annular calcification. There is moderate mitral regurgitation. Compared to the prior echo study, there has been no change in the severity of mitral regurgitation. Aortic Valve: The aortic valve is moderately calcified. There is discrete nodular thickening of the non- coronary cusp. The peak aortic velocity is 2.4 m/sec. The aortic valve mean gradient is 16 mmHg. The calculated aortic valve area is 1.9 cm2. The peak aortic velocity on the previous exam was 2.5 m/sec. There is mild aortic stenosis. There is trace aortic regurgitation. Tricuspid Valve: The tricuspid valve is not well visualized, but is grossly normal. There is mild to moderate tricuspid regurgitation. The right ventricular systolic pressure is estimated to be at least 32 mmHg based on an estimated right atrial pressure of 3 mm Hg. Pulmonic Valve: The pulmonic valve leaflets are thin and pliable; valve motion is normal. There is trace pulmonic regurgitation. Great Vessels: The aortic root is normal size. The dimensions of the ascending aorta are normal. The IVC is of normal diameter and collapses greater than 50% with a sniff. This suggests a low right atrial pressure of 3 mm Hg. Pericardium/ Pleura There is no pericardial effusion. There is no pleural effusion. MMode/2D Measurements & Calculations LVIDd: 4.8 cm LVOT diam: 2.1 cm LVIDs: 3.1 cm Ao root diam: 3.4 cm FS: 36.5 % asc Aorta Diam: 3.8 cm EPSS: 0.94 cm Ao Arch Diam (Prox Trans): 3.6 cm IVSd: 0.89 cm LVPWd: 0.90 cm LV gann. diameter/BSA (cm/m^2): 2.5 LV sys. diameter/BSA (cm/m^2): 1.6 LA A2 area: 23.5 cm2 RA long axis: 5.7 cm LA A4 area: 18.8 cm2 RA area: 17.3 cm2 LA length (vol): 5.6 cm RA vol: 44.3 ml LA vol: 67.2 ml RA : 22.6 ml/m2 LA vol index: 34.2 ml/m2 IVC diam: 1.8 cm RVD1 (basal): 4.1 cm TAPSE: 2.5 cm Doppler Measurements & Calculations Ao V2 max: 243.3 cm/sec LVOT Max Antonio: 152.7 cm/sec Ao V2 mean: 176.1 cm/sec LV V1 max P.3 mmHg Ao max P.7 mmHg LV V1 VTI: 30.5 cm Ao mean P.6 mmHg DANIELLE(I,D): 1.9 cm2 Ao V2 VTI: 56.3 cm DANIELLE(V,D): 2.2 cm2 sev ratio: 0.54 DANIELLE indexed to BSA (cm^2/m^2): 0.96 MV E max antonio: 87.6 cm/sec TR max antonio: 267.3 cm/sec MV A max antonio: 109.3 cm/sec TR max P.6 mmHg MV E/A: 0.80 PA V2 max: 115.5 cm/sec Med Peak E' Antonio: 7.6 cm/sec PA V2 mean: 72.6 cm/sec E/E' med: 11.6 PA mean P.5 mmHg Lat Peak E' Antonio: 7.6 cm/sec PA pr(Accel): 19.1 mmHg E/E' lat: 11.4 E/e' average: 11.5 MV dec time: 0.19 sec SV(LVOT): 106.4 ml Reading Physician:01:29 PM
== END ==
PROVIDERS: PCP Family Medicine; Referring Provider Internal Medicine Cardiovascular Disease; Visit Provider Internal Medicine Cardiovascular Disease
DX: I08.3 Combined rheumatic disorders of mitral, aortic and tricuspid valves (principal); Z95.0 Presence of cardiac pacemaker
CPT/HCPCS: 93306

== ENCOUNTER 2024-05-10 08:23 | Emergency (ER) | payer MEDICARE, SELFPAY ==
[2024-05-10] VITALS (20 sets, daily range): BP systolic 93–120; BP diastolic 51–61; PULSE 59–95; RESP 16–27; TEMP 36.6; O2SAT 89–99; BMI 25.1
--- NOTE | 2024-05-10 08:58 | DI.RAD.S_ITS ---
PROCEDURE: XR CHEST 1V INDICATIONS: chest pain TECHNIQUE: One view of the chest was acquired. COMPARISON: None. FINDINGS: Surgical changes and devices: Pacemaker. Lungs and pleura: Lungs are clear. No pleural effusions or pneumothorax. Mediastinum: Mediastinal contours appear normal. Heart size is normal. Bones and chest wall: No suspicious bony lesions. Overlying soft tissues appear unremarkable. IMPRESSION: No acute cardiopulmonary abnormality is seen. Dictated by: Semaj Guerin M.D. on 05/10/2024 at 9:06 Approved by: Semaj Guerin M.D. on 05/10/2024 at 9:06
--- NOTE | 2024-05-10 08:58 | EKG_ITS ---
[address] [address] Test Date: 2024-05-10 Pat Name: Kwasi Batista Department: Room: Gender: Male Cat Sitter: COSME : 1935 Requested By: Order Number: [id number] Reading MD: Keven Cary Measurements Intervals Lem[place] Rate: 67 P: GA: 186 QRS: -42 QRSD: 144 T: 31 QT: 424 QTc: 448 Interpretive Statements Atrial-paced rhythm Left axis deviation Right bundle branch block Minimal voltage criteria for LVH, may be normal variant ( R in aVL ) Electronically Signed On 05-11-2024 18:29:04 PDT by Keven Cary
--- NOTE | 2024-05-10 09:12 | ED.CHESTPAIN ---
HPI - Chest Pain General Chief Complaint: Chest Pain Stated Complaint: chest pain, sob Time Seen by Provider: 05/10/24 08:53 History of Present Illness HPI narrative: Patient is an 88-year-old male history of atrial fibrillation recent Watchman procedure 1 week ago currently on aspirin and Plavix has not previously tolerated anticoagulation, hypertension presenting to day with chest discomfort. He says it hurts every time he takes a breath. It has not really reproducible with movement or position. No significant shortness of breath. He does report that he gets a little lightheaded when he stands he has not passed out. No fever or chills. Thought he might be getting some kind of cold he is started getting a sore throat while in the ED. Related Data Home Medications Medication Instructions Recorded Confirmed cholecalciferol (vitamin D3) 25 75 mcg PO DAILY 11/05/20 02/13/24 mcg (1,000 unit) capsule aspirin 81 mg tablet 81 mg PO DAILY 05/08/23 02/13/24 Previous Rx's Medication Instructions Recorded losartan 50 mg tablet 25 mg (1/2 x 50 mg) PO DAILY blood 07/12/23 pressure #90 tabs atorvastatin 40 mg tablet 40 mg PO DAILY #90 tabs 04/08/24 tamsulosin 0.4 mg capsule 0.8 mg (2 x 0.4 mg) PO DAILY #180 04/12/24 caps Allergies Allergy/AdvReac Type Severity Reaction Status Date / Time Penicillins Allergy swelling Verified 02/13/24 08:47 Patient History Medical History Benign essential HTN History of bladder stone Bladder calculus Vitamin B deficiency Bladder cancer LAFB (left anterior fascicular block) RBBB (right bundle branch block) Atrial fibrillation 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 Foot pain Diverticular disease Colon polyps CKD (chronic kidney disease) stage 3, GFR 30-59 ml/min Paroxysmal A-fib Right renal stone History of kidney stones Hx of bladder cancer 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 Hyperparathyroidism Dupuytren contracture Cataract Carotid artery plaque Calculus of kidney Aortic stenosis Recurrent skin cancer Stage 3a chronic kidney disease Low vitamin D level Hyperlipidemia Surgical History H/O circumcision History of hip replacement H/O hernia repair Pacemaker (2018) Social History marital status: household members: spouse lives independently: Yes occupational status: employed leisure activities: exercise Smoking Status: Never smoker alcohol intake: current substance use type: does not use Smoking Status: Never smoker alcohol intake frequency: 0-2 drinks per day Exam Initial Vital Signs Initial Vital Signs: Vital Signs Pulse Rate 68 05/10/24 08:33 Pulse Oximetry 98 05/10/24 08:33 GENERAL: Alert well-appearing 88 and in no acute distress. HEENT: Head atraumatic,EOMI, pupils reactive, face symmetric, moist mucous membranes CARDIOVASCULAR: Regular rate and rhythm without murmurs, rubs or gallops. RESPIRATORY: Breath sounds equal bilaterally, no wheezes rales or rhonchi. ABDOMEN: Soft, nontender. Normoactive bowel sounds all 4 quadrants. No guarding or rebound. RECTAL: No gross blood external hemorrhoids no stool EXTREMITIES: Normal range of motion, no clubbing. No peripheral edema. Neurovascularly intact NEUROLOGICAL: Alert and oriented x4.Normal gait and speech. Cranial nerves II through XII grossly intact. SKIN: Warm, dry, no laceration, no petechiae, no rashes or lesions. Course Orders Ordered: ED Orders 05/10/24 09:54 Covid-19 + FLU A/B + RSV - PCR Stat 05/10/24 10:49 CT angio chest PE protocol Stat 05/10/24 10:50 Type and Screen Stat 05/10/24 10:53 Trop I [Troponin I] Stat 05/10/24 11:23 EKG-12 Lead Stat 05/10/24 12:50 Hemoglobin and Hematocrit Stat Discontinued Medications Acetaminophen (Acetaminophen 325 Mg Tablet) 975 mg PO NOW ONE Stop: 05/10/24 09:40 Last Admin: 05/10/24 10:00 Dose: 975 mg Documented By: CTS Aspirin (Aspirin 81 Mg Chew Tab) 324 mg PO NOW ONE Stop: 05/10/24 08:58 Last Admin: 05/10/24 09:14 Dose: Not Given Documented By: SPF Sodium Chloride (Normal Saline 0.9%) 1,000 mls @ 1,000 mls/hr IV BOLUS ONE Stop: 05/10/24 10:38 Last Infusion: 05/10/24 10:16 Dose: Infused Documented By: Admin: 05/10/24 10:00 Dose: 1,000 mls/hr Documented By: ELLIE Pantoprazole Sodium (Pantoprazole 40 Mg Vial) 80 mg IV NOW ONE Stop: 05/10/24 13:11 Last Admin: 05/10/24 13:37 Dose: 80 mg Documented By: JAMES Vital Signs Vital signs: Vital Signs - 8 hr 05/10/24 11:00 05/10/24 11:00 05/10/24 11:13 Pulse Rate 61 Respiratory Rate 21 Blood Pressure 96/52 L 107/58 L Pulse Oximetry 97 05/10/24 11:13 05/10/24 11:30 05/10/24 11:30 Pulse Rate 70 59 L Respiratory Rate 21 16 Blood Pressure 104/55 L Pulse Oximetry 89 L 96 05/10/24 11:45 05/10/24 11:45 05/10/24 12:00 Pulse Rate 60 Respiratory Rate 19 Blood Pressure 95/51 L 96/53 L Pulse Oximetry 95 05/10/24 12:00 05/10/24 12:15 05/10/24 12:15 Pulse Rate 60 63 Respiratory Rate 16 17 Blood Pressure 93/51 L Pulse Oximetry 97 97 05/10/24 12:30 05/10/24 12:30 05/10/24 12:30 Pulse Rate 67 Respiratory Rate 27 H Blood Pressure 97/58 L 97/58 L Pulse Oximetry 96 05/10/24 12:41 05/10/24 12:41 05/10/24 13:35 Pulse Rate 63 78 Respiratory Rate 22 Blood Pressure 120/57 L Pulse Oximetry 96 05/10/24 13:36 05/10/24 13:36 Pulse Rate 77 Respiratory Rate Blood Pressure 106/56 L Pulse Oximetry 99 MDM - Chest Pain Lab Data 05/10/24 12:50 05/10/24 08:54 Labs: Lab Results 05/10/24 05/10/24 05/10/24 Range/Units 08:54 09:54 10:50 WBC 12.9 H (4.5-11.0) X10^3/uL RBC 2.57 L (4.5-5.9) X10^6/uL Hgb 8.7 L (13.5-17.5) g/dL Hct 25.9 L (41-53) % MCV 100.7 H (80-100) fL MCH 33.7 (26-34) PG MCHC 33.4 (30-36) % RDW 19.8 H (11.6-14.8) % Plt Count 132 L (150-400) X10^3/uL Neut % (Auto) Not Reportable Lymph % (Auto) Not Reportable Preble % (Auto) Not Reportable Eos % (Auto) Not Reportable Baso % (Auto) Not Reportable Lymph # (Auto) Not Reportable Preble # (Auto) Not Reportable Baso # (Auto) Not Reportable Total Counted 100 Seg Neutrophils % 57.0 (38-70) % Band Neutrophils % 16.0 H (3-7) % Lymphocytes % (Manual) 4.0 L (25-45) % Atypical Lymphs % 2.0 H ( - 0) % Monocytes % (Manual) 9.0 (2-11) % Metamyelocytes % 5.0 H (-0) % Myelocytes % 7.0 H (-0) % Neutrophils # (Manual) 9417 H (8581-5576) /uL RBC Morphology See below Anisocytosis 1+ H Macrocytosis 1+ H PT 12.6 H (9.4-12.5) SECONDS INR 1.1 (0.9-1.3) APTT 38 H (25.1-36.5) SECONDS Sodium 137 (137-145) mmol/L Potassium 4.2 (3.4-5.1) mmol/L Chloride 109 H (98-107) mmol/L Carbon Dioxide 17 L (22-32) mmol/L BUN 29 H (9-20) mg/dL Creatinine 1.70 H (0.66-1.25) mg/dL Estimated GFR 39 L (>60) mL/min BUN/Creatinine Ratio 17.1 (6-22) Glucose 138 H (80-110) mg/dL Calcium 8.9 (8.4-10.2) mg/dL Magnesium 1.6 (1.6-2.3) mg/dL Total Bilirubin 1.5 H (0.2-1.3) mg/dL AST 24 (17-59) IU/L ALT 16 (<50) IU/L Alkaline Phosphatase 64 (38-126) U/L Total Creatine Kinase 39 L (55-170) U/L Troponin I 0.053 H (0.01-0.034) ng/mL NT-Pro-B Natriuret Pep 3350 H (<450) pg/mL Total Protein 7.3 (6.3-8.2) g/dL Albumin 4.0 (3.5-5.0) g/dL Globulin 3.3 (1.7-4.1) g/dL Albumin/Globulin Ratio 1.2 (1.0-2.8) Lipase 54 (23-300) U/L SARS-CoV-2 (PCR) Negative (Negative) Influenza A (RT-PCR) Flu a negative (NEGATIVE) Influenza B (RT-PCR) Flu b negative (NEGATIVE) RSV (PCR) Negative (Negative) Blood Type O Positive Antibody Screen Negative 05/10/24 05/10/24 Range/Units 10:53 12:50 WBC (4.5-11.0) X10^3/uL RBC (4.5-5.9) X10^6/uL Hgb 8.7 L (13.5-17.5) g/dL Hct 26.1 L (41-53) % MCV (80-100) fL MCH (26-34) PG MCHC (30-36) % RDW (11.6-14.8) % Plt Count (150-400) X10^3/uL Neut % (Auto) Lymph % (Auto) Preble % (Auto) Eos % (Auto) Baso % (Auto) Lymph # (Auto) Preble # (Auto) Baso # (Auto) Total Counted Seg Neutrophils % (38-70) % Band Neutrophils % (3-7) % Lymphocytes % (Manual) (25-45) % Atypical Lymphs % ( - 0) % Monocytes % (Manual) (2-11) % Metamyelocytes % (-0) % Myelocytes % (-0) % Neutrophils # (Manual) (3024-0507) /uL RBC Morphology Anisocytosis Macrocytosis PT (9.4-12.5) SECONDS INR (0.9-1.3) APTT (25.1-36.5) SECONDS Sodium (137-145) mmol/L Potassium (3.4-5.1) mmol/L Chloride (98-107) mmol/L Carbon Dioxide (22-32) mmol/L BUN (9-20) mg/dL Creatinine (0.66-1.25) mg/dL Estimated GFR (>60) mL/min BUN/Creatinine Ratio (6-22) Glucose (80-110) mg/dL Calcium (8.4-10.2) mg/dL Magnesium (1.6-2.3) mg/dL Total Bilirubin (0.2-1.3) mg/dL AST (17-59) IU/L ALT (<50) IU/L Alkaline Phosphatase (38-126) U/L Total Creatine Kinase (55-170) U/L Troponin I 0.045 H (0.01-0.034) ng/mL NT-Pro-B Natriuret Pep (<450) pg/mL Total Protein (6.3-8.2) g/dL Albumin (3.5-5.0) g/dL Globulin (1.7-4.1) g/dL Albumin/Globulin Ratio (1.0-2.8) Lipase (23-300) U/L SARS-CoV-2 (PCR) (Negative) Influenza A (RT-PCR) (NEGATIVE) Influenza B (RT-PCR) (NEGATIVE) RSV (PCR) (Negative) Blood Type Antibody Screen Imaging Data CT scan - chest: Radiologist's Impression: PROCEDURE: CT ANGIO CHEST PE PROTOCOL INDICATIONS: recent watchman not chest pain, anemia r/o complication TECHNIQUE: After the administration of intravenous contrast, 2 mm thick sections acquired from the pulmonary apices to the posterior costophrenic angles. 3-dimensional maximum intensity projection (MIP) coronal and sagittal reformats were then acquired through the thorax. For radiation dose reduction, the following was used: automated exposure control, adjustment of mA and/or kV according to patient size. COMPARISON: None. FINDINGS: Image quality: Diagnostic. Pulmonary arteries: Pulmonary arteries are normal in size, and demonstrate no intraluminal filling defects to suggest central pulmonary embolism. Lower Neck: No enlarged lymph nodes. Thyroid: No thyroid nodules which require sonographic follow up, per consensus guidelines. Axillae: No enlarged lymph nodes. Chest Wall: Unremarkable. Bones: Unremarkable. Lungs and Pleura: No pneumothorax or pleural effusions. Minimal right basilar atelectasis. Very minimal interstitial pulmonary edema, with subtle paraseptal thickening noted in the lung bases. No airspace consolidation. Heart: Heart size is normal. No pericardial effusion. Pacemaker. Left atrial appendage occlusion device. Moderate coronary artery calcifications. Top normal heart size. Thoracic Vessels: No aortic aneurysm. Mediastinum and Stella: No enlarged lymph nodes. Esophagus: No wall thickening. No hiatal hernia. Upper Abdomen: Visualized upper abdomen solid organs and bowel loops appear normal. IMPRESSION: No pulmonary embolus. Very minimal interstitial pulmonary edema. Minimal right basilar atelectasis. Dictated by: Semaj Guerin M.D. on 05/10/2024 at 11:24 Chest x-ray: Radiologist's Impression: PROCEDURE: XR CHEST 1V INDICATIONS: chest pain TECHNIQUE: One view of the chest was acquired. COMPARISON: None. FINDINGS: Surgical changes and devices: Pacemaker. Lungs and pleura: Lungs are clear. No pleural effusions or pneumothorax. Mediastinum: Mediastinal contours appear normal. Heart size is normal. Bones and chest wall: No suspicious bony lesions. Overlying soft tissues appear unremarkable. IMPRESSION: No acute cardiopulmonary abnormality is seen. Dictated by: Semaj Guerin M.D. on 05/10/2024 at 9:06 ECG Data Attestation: I personally reviewed and interpreted this ECG as follows: Prior ECG tracings: not available for review Interpretation: Sinus rhythm 61 paced rhythm right bundle-branch block no ischemia no priors to compare Normal sinus rhythm rate 63 NV interval 210 QRS 144 QTC 462 atrial paced rhythm right bundle-branch block similar to previous MDM Narrative Medical decision making narrative: MDM CC: Chest pain Complicating co-morbidities: Atrial fibrillation current or Watchman hyperlipidemia hypertension Data collected from: and patient Medical records reviewed: Hospitalization from 05/01/2024 Differential considered: Pleurisy, pericardial effusion, acute coronary disease Exam documented above, pertinent findings include: Alert well-appearing 88-year-old male breath sounds clear pain with deep breathing abdomen soft no peripheral edema Lab Test results independently reviewed as above. Pertinent findings: Troponin 0.053 with repeat 0.045 BNP 3350 CBC WBC 12.9 hemoglobin 8.7 hematocrit 25.9 platelets 132--> previous hemoglobin 10.6/31.5 in September of 2023 CMP bicarb slightly low at 17 creatinine of 1.70 previously 1.38 Repeat H&H 8.7/26.1 Independently reviewed EKG as above Paced rhythm right bundle-branch block Imaging studies independently reviewed: CT chest no pericardial effusion no pulmonary embolism no active bleeding shows some right lower lobe atelectasis Consultations: Dr. De Souza, automatic i threading machine feeder Watchman procedure, reports pleurisy common after procedure updated on CT results and blood work. Concerned about anemia states that patient had a hemoglobin of May 01 also concern with blood pressure Treatments: Tylenol normal saline Re-evaluations: Patient is still having some discomfort, but feeling better blood pressure improved with 1 L of fluids. He was given 2 500 boluses he was not having any evidence of fluid overload and tolerated 1 L well Discussion: 88-year-old male presenting today with chest pain. Symptoms are most consistent with pleuritic pain which confirmed by Cardiology to be expected after this procedure. He also complains of weakness some dizziness lightheadedness. He is found to have lower blood pressures systolic in the 90s and new anemia. Patient had previously not tolerated anticoagulation medication issue spontaneous bleeding is now on Plavix and aspirin. He denies any bloody stools or black stool, his guaiac did not have any hematochezia and no stool. Patient had repeat H&H which showed no change. He was able to stand up with a blood pressure of 120 and overall feeling much better. He is guaiac negative. At this time no active bleeding. Encouraged close outpatient follow-up with repeat blood work next week Discharge Plan Departure Patient Disposition: Home Clinical Impression: Pleurisy, Anemia Instructions: Anemia, Pleurisy Activity Restrictions/Additional Instructions: *You have been diagnosed with pleurisy with anemia *What to do: At this time please have your hemoglobin rechecked on Monday. Your primary care provider can do this. No need for blood transfusion at this time. Please stay hydrated *Continue to take medications as directed Tylenol 1000mg every 6 hours if needed for pain *Follow up with your primary care provider in 2-3 days or call [phone] *Return to ER if you should have increasing dizziness lightheadedness black or bright red bloody stool, passing out increasing chest pain or any new, worsening or concerning symptoms Prescriptions: No Action atorvastatin 40 mg tablet 40 mg PO DAILY Qty: 90 1RF tamsulosin 0.4 mg capsule 0.8 mg PO DAILY Qty: 180 2RF losartan 50 mg tablet 25 mg PO DAILY Qty: 90 3RF cholecalciferol (vitamin D3) 25 mcg (1,000 unit) capsule 75 mcg PO DAILY aspirin 81 mg Tablet 81 mg PO DAILY Referrals: Chai Solis DO [Primary Care Provider] - Stand Alone Forms: Patient Portal/API/Survey
[2024-05-10 09:16] LABS: INR 1.1 (0.9-1.3); Prothrombin Time 12.6 SECONDS (9.4-12.5)
[2024-05-10 09:18] LABS: PTT Partial Thromboplastin Tim 38 SECONDS (25.1-36.5)
[2024-05-10 09:19] LABS: Alanine Aminotransferase 16 IU/L (<50); Albumin Globulin Ratio 1.2 (1.0-2.8); Alkaline Phosphatase 64 U/L (38-126); Aspartate Aminotransferase 24 IU/L (17-59); BUN Creatinine Ratio 17.1 (6-22); Bilirubin Total 1.5 mg/dL (0.2-1.3); Blood Urea Nitrogen 29 mg/dL (9-20); Calcium 8.9 mg/dL (8.4-10.2); Carbon Dioxide 17 mmol/L (22-32); Chloride 109 mmol/L (98-107); Creatine Kinase 39 U/L (55-170); Estimated Glomerular Filt Rate 39 mL/min (>60); Globulin 3.3 g/dL (1.7-4.1); Glucose 138 mg/dL (80-110); HEMOLYSIS < 15 (0-50); Lipase 54 U/L (23-300); Magnesium 1.6 mg/dL (1.6-2.3); Potassium 4.2 mmol/L (3.4-5.1); Sodium 137 mmol/L (137-145); Total Protein 7.3 g/dL (6.3-8.2)
[2024-05-10 09:31] LABS: NT-proBNP (BNP-Adult 18+) 3350 pg/mL (<450); Troponin I 0.053 ng/mL (0.01-0.034)
[2024-05-10 09:35] LABS: Add Manual Diff / Slide Review YES; Hematocrit 25.9 % (41-53); Hemoglobin 8.7 g/dL (13.5-17.5); Mean Corpuscular HGB Conc 33.4 % (30-36); Mean Corpuscular Hemoglobin 33.7 PG (26-34); Mean Corpuscular Volume 100.7 fL (80-100); Platelet Count 132 X10^3/uL (150-400); Red Blood Cell Count 2.57 X10^6/uL (4.5-5.9); Red Cell Distribution Width 19.8 % (11.6-14.8); White Blood Cell Count 12.9 X10^3/uL (4.5-11.0)
[2024-05-10] MEDS: ACETAMINOPHEN 325 MG TABLET 975 MG PO (10:00)
[2024-05-10] MEDS: SODIUM CHLORIDE 0.9% 1,000 ML 1000 ML IV (10:00)
[2024-05-10 10:45] LABS: Influenza A - CEPHEID Flu A NEGATIVE (NEGATIVE); Influenza B - CEPHEID Flu B NEGATIVE (NEGATIVE); Respiratory Syncytial Virus Negative (Negative)
--- NOTE | 2024-05-10 10:49 | DI.CT.S_ITS ---
PROCEDURE: CT ANGIO CHEST PE PROTOCOL INDICATIONS: recent watchman not chest pain, anemia r/o complication TECHNIQUE: After the administration of intravenous contrast, 2 mm thick sections acquired from the pulmonary apices to the posterior costophrenic angles. 3-dimensional maximum intensity projection (MIP) coronal and sagittal reformats were then acquired through the thorax. For radiation dose reduction, the following was used: automated exposure control, adjustment of mA and/or kV according to patient size. COMPARISON: None. FINDINGS: Image quality: Diagnostic. Pulmonary arteries: Pulmonary arteries are normal in size, and demonstrate no intraluminal filling defects to suggest central pulmonary embolism. Lower Neck: No enlarged lymph nodes. Thyroid: No thyroid nodules which require sonographic follow up, per consensus guidelines. Axillae: No enlarged lymph nodes. Chest Wall: Unremarkable. Bones: Unremarkable. Lungs and Pleura: No pneumothorax or pleural effusions. Minimal right basilar atelectasis. Very minimal interstitial pulmonary edema, with subtle paraseptal thickening noted in the lung bases. No airspace consolidation. Heart: Heart size is normal. No pericardial effusion. Pacemaker. Left atrial appendage occlusion device. Moderate coronary artery calcifications. Top normal heart size. Thoracic Vessels: No aortic aneurysm. Mediastinum and Stella: No enlarged lymph nodes. Esophagus: No wall thickening. No hiatal hernia. Upper Abdomen: Visualized upper abdomen solid organs and bowel loops appear normal. IMPRESSION: No pulmonary embolus. Very minimal interstitial pulmonary edema. Minimal right basilar atelectasis. Dictated by: Semaj Guerin M.D. on 05/10/2024 at 11:24 Approved by: Semaj Guerin M.D. on 05/10/2024 at 11:27
[2024-05-10 10:51] LABS: COVID-19 CEPHEID 4-PLEX PCR Negative (Negative)
--- NOTE | 2024-05-10 11:16 | EKG_ITS ---
[facility] [id number] [place] [id number] Test Date: 2024-05-10 Pat Name: Kwasi Batista Department: Room: Gender: Male Industrial Analyst: HANNAH : 1935 Requested By: Order Number: [id number] Reading MD: Keven Cary Measurements Intervals [place] Rate: 63 P: AK: 210 QRS: -39 QRSD: 144 T: 5 QT: 452 QTc: 462 Interpretive Statements Atrial-paced rhythm with prolonged AV conduction Left axis deviation Right bundle branch block Minimal voltage criteria for LVH, may be normal variant ( R in aVL ) Electronically Signed On 05-11-2024 18:29:14 PDT by Keven Cary
[2024-05-10 11:26] LABS: Troponin I 0.045 ng/mL (0.01-0.034)
[2024-05-10 11:32] LABS: Neutrophils Absolute Manual 9417 /uL (3000-5900); Total Cells Counted 100
[2024-05-10 11:33] LABS: Anisocytosis 1+; Macrocytosis 1+
[2024-05-10 13:27] LABS: Hematocrit 26.1 % (41-53); Hemoglobin 8.7 g/dL (13.5-17.5)
[2024-05-10] MEDS: PANTOPRAZOLE 40 MG VIAL 80 MG IV (13:37)
== END 2024-05-10 13:50 | disposition home or self-care (01) ==
PROVIDERS: Emergency Provider Emergency Medicine; PCP Family Medicine
DX: R09.1 Pleurisy (principal); D64.9 Anemia, unspecified; I10 Essential (primary) hypertension; Z79.82 Long term (current) use of aspirin; Z79.01 Long term (current) use of anticoagulants
CPT/HCPCS: 0241U; 36415; 71045; 71275; 80053; 82550; 83690; 83735; 83880; 84484; 85007; 85014; 85018; 85025; 85610; 85730; 86850; 86900; 86901; 93005; 96374; 99284; J2470; Q9967

== ENCOUNTER → 2024-05-13 09:40 | Outpatient (CLI) | payer MEDICARE, SELFPAY ==
[2024-05-13 10:27] LABS: Add Manual Diff / Slide Review NO; Basophils Absolute Auto 0 /uL (0-100); Basophils Percent Auto 0.5 % (0-2); Eosinophils Absolute Auto 0 /uL (0-450); Eosinophils Percent Auto 0.6 % (2-4); Hematocrit 26.4 % (41-53); Hemoglobin 8.9 g/dL (13.5-17.5); Lymphocytes Absolute Auto 1200 /uL (1100-4500); Lymphocytes Percent Auto 15.9 % (25-40); Mean Corpuscular HGB Conc 33.6 % (30-36); Mean Corpuscular Hemoglobin 33.9 PG (26-34); Mean Corpuscular Volume 101.1 fL (80-100); Monocytes Absolute Auto 1700 /uL (0-900); Monocytes Percent Auto 22.8 % (3-14); Neutrophils Absolute Auto 4600 /uL (1500-7000); Neutrophils Percent Auto 60.2 % (50-75); Platelet Count 184 X10^3/uL (150-400); Red Blood Cell Count 2.62 X10^6/uL (4.5-5.9); Red Cell Distribution Width 18.9 % (11.6-14.8); White Blood Cell Count 7.6 X10^3/uL (4.5-11.0)
[2024-05-13 10:40] LABS: BUN Creatinine Ratio 14.9 (6-22); Blood Urea Nitrogen 23 mg/dL (9-20); Calcium 8.9 mg/dL (8.4-10.2); Carbon Dioxide 19 mmol/L (22-32); Chloride 114 mmol/L (98-107); Estimated Glomerular Filt Rate 43 mL/min (>60); Glucose 104 mg/dL (80-110); HEMOLYSIS < 15 (0-50); Potassium 4.9 mmol/L (3.4-5.1); Sodium 141 mmol/L (137-145)
== END ==
PROVIDERS: PCP Family Medicine; Referring Provider Family Medicine; Visit Provider Family Medicine
DX: D53.9 Nutritional anemia, unspecified (principal); R06.02 Shortness of breath; R19.7 Diarrhea, unspecified; N18.30 Chronic kidney disease, stage 3 unspecified
CPT/HCPCS: 36415; 80048; 85025

== ENCOUNTER → 2024-06-10 15:33 | Outpatient (CLI) | payer MEDICARE, SELFPAY ==
[2024-06-10 16:11] LABS: Hematocrit 29.1 % (41-53); Hemoglobin 9.8 g/dL (13.5-17.5); Mean Corpuscular HGB Conc 33.8 % (30-36); Mean Corpuscular Hemoglobin 34.1 PG (26-34); Mean Corpuscular Volume 100.8 fL (80-100); Platelet Count 123 X10^3/uL (150-400); Red Blood Cell Count 2.88 X10^6/uL (4.5-5.9); Red Cell Distribution Width 23.1 % (11.6-14.8)
[2024-06-10 16:31] LABS: Alanine Aminotransferase 15 IU/L (<50); Albumin 4.4 g/dL (3.5-5.0); Albumin Globulin Ratio 1.4 (1.0-2.8); Alkaline Phosphatase 62 U/L (38-126); Aspartate Aminotransferase 24 IU/L (17-59); BUN Creatinine Ratio 12.1 (6-22); Bilirubin Total 1.2 mg/dL (0.2-1.3); Blood Urea Nitrogen 24 mg/dL (9-20); Carbon Dioxide 20 mmol/L (22-32); Chloride 108 mmol/L (98-107); Estimated Glomerular Filt Rate 32 mL/min (>60); Globulin 3.1 g/dL (1.7-4.1); Glucose 104 mg/dL (80-110); HEMOLYSIS < 15 (0-50); Lipase 104 U/L (23-300); Potassium 4.6 mmol/L (3.4-5.1); Sodium 141 mmol/L (137-145); Total Protein 7.5 g/dL (6.3-8.2)
== END ==
PROVIDERS: PCP Family Medicine; Referring Provider Family Medicine; Visit Provider Family Medicine
DX: D64.9 Anemia, unspecified (principal); R19.7 Diarrhea, unspecified
CPT/HCPCS: 36415; 80053; 83690; 85027

== ENCOUNTER → 2024-09-23 15:44 | Outpatient (CLI) | payer MEDICARE, SELFPAY ==
[2024-09-23 16:03] LABS: Hematocrit 28.3 % (41-53); Hemoglobin 9.5 g/dL (13.5-17.5); Mean Corpuscular HGB Conc 33.5 % (30-36); Mean Corpuscular Hemoglobin 33.1 PG (26-34); Mean Corpuscular Volume 98.7 fL (80-100); Platelet Count 159 X10^3/uL (150-400)
[2024-09-23 16:24] LABS: Blood Urea Nitrogen 24 mg/dL (9-20); Calcium 9.0 mg/dL (8.4-10.2); Carbon Dioxide 22 mmol/L (22-32); Chloride 108 mmol/L (98-107); Estimated Glomerular Filt Rate 60 mL/min (>60); Glucose 98 mg/dL (70-99); HEMOLYSIS < 15 (0-50); Potassium 4.6 mmol/L (3.4-5.1); Sodium 139 mmol/L (137-145)
== END ==
PROVIDERS: PCP Family Medicine; Referring Provider Family Medicine; Visit Provider Family Medicine
DX: N18.30 Chronic kidney disease, stage 3 unspecified (principal); D63.1 Anemia in chronic kidney disease; E78.5 Hyperlipidemia, unspecified
CPT/HCPCS: 36415; 80048; 85027